=== PATIENT | male | born 1975 | race Caucasian/White ===

== ENCOUNTER 2023-09-24 08:25 | Inpatient (IN) | payer BC, SELFPAY ==
[2023-09-16 13:53] VITALS: BMI 25.7
[2023-09-16 14:52] LABS: INR 0.98; PT 13.2 Sec (11.4-14.6)
[2023-09-16 14:53] LABS: APTT 25.1 Sec (23.4-35.0)
[2023-09-16 15:03] LABS: Hematocrit 44.5 % (39.0-52.0); Hemoglobin 16.1 g/dL (13.0-18.0); Mean Corp Hgb Conc. 36.2 g/dL (33.0-37.0); Mean Corpuscular Hgb 32.5 pg (27.0-31.0); Mean Corpuscular Volume 89.9 fL (80.0-94.0); Mean Platelet Volume 11.4 fL (7.4-10.4); Platelet Count 235 10^3/uL (130-400); Red Blood Cell Count 4.95 10^6/uL (4.70-6.10); Red Cell Dist. Width 11.9 % (11.5-14.5); White Blood Cell Count 6.9 10^3/uL (4.8-10.8)
[2023-09-23] VITALS (11 sets, daily range): BP systolic 72–146; BP diastolic 76–99; BMI 24.3
--- NOTE | 2023-09-23 12:27 | SUR.PHASEI ---
1222. Ask to place NRB mask on patient per Dr Velazquez. IR will call for Ct insertion. 02 sats good 100%, no chest pain or SOb. Brittney Finnegan RN BSN.
--- NOTE | 2023-09-23 12:46 | SUR.PHASEI ---
To IR on [id number]. Brittney banuelos RN BSN.
--- NOTE | 2023-09-23 12:53 | W.PN.UPDATE ---
Update Note
Progress Note Update
Event Note:
Patient here today for robotic ION bronchoscopy for RML spiculated nodule. Procedure went well and at end of case peak pressure were stable and <30 and plateau pressures were 18-20. There were no large swings in peak or plateu pressures during the
entire case. Post-procedure the pt went to PACU. Post-op CXR shows large R-sided PTX. I immediately went to see the patient. He was stable on nasal cannula but still lethargic from awakening from anesthesia. Decision made to place on NRB 100%,
and I contacted IR for emergent chest tube. Pt to be admitted to hospitalist service, Dr. Almaguer. I will follow along as a pulmonary qa consultant.
Impression:
#Right sided acute secondary pneumthorax due to RML biopsy in setting of emphysema
#Former tobacco use disorder
#RML nodule - prelim pathology shows atypical/malignant cells on the brushing, TBNA and TBBx
Plan:
- Place onto 100% FiO2 to help resorb PTX --> keep on 100% FiO2 for today
- stat IR chest tube
- Keep on negative suction -[id number]
- Monitor for air leak
- No incentive spirometer as this can worsen his PTX
- I will follow as a pulmonary qa consultant
- Await final path from biopsies today
- full consult note to follow
I updated the in the same-day surgery waiting room. She is concerned but understandable. All questions were answered.
--- NOTE | 2023-09-23 13:07 | HPS.HSE ---
Addendum entered and electronically signed by Fermín Almaguer MD 09/23/23 13:33:
As per Dr. Velazquez of pulmonary:
- Place onto 100% FiO2 to help resorb PTX --> keep on 100% FiO2 for today (maintain on 100% nonrebreather mask for today unless patient is eating then patient can do 6 L/min nasal cannula)
- Keep on negative suction -[id number]
- Monitor for air leak
- No incentive spirometer as this can worsen his pneumothorax
Original Note:
Family Physician
-
Family Physician: Arlet Wheatley MD
Chief Complaint
-
Pneumothorax post-procedure
History of Present Illness
48 y/o male with past medical history of emphysema, former tobacco smoker, spiculated right middle lobe nodule, Lyme Disease, chicken pox, and hyperlipidemia presented after right-sided chest tightness after pulmonary procedures - robotic
bronchoscopy and endobronchial ultrasound - with chest x-ray showed large right-sided pneumothorax. Patient was seen in the Interventional Radiology department, he was there to get chest tube placed. Patient denied any significant shortness of
breath or actual chest pain, but a vague feeling of chest tightness on his right side. He denied fever, nausea, vomiting or any other complaints.
Medical History
Past Medical History
Past Medical History: Reports Other (As per HPI above)
Past Surgical History: Reports Other (Hernia Repair and Dental Surgery)
Social History
Tobacco: Former Smoker
Alcohol: None
Drug: None
Family History
Family History: Cancer and Hypertension
Allergies / Home Medications
Allergies reflects when Allergies were last updated in [facility].
Home Medications with original date entered in [facility]
Allergy/Medication List:
Allergies
Allergy/AdvReac Type Severity Reaction Status Date / Time
No Known Allergies Allergy Verified 09/23/23 08:51
Home Medications
diphenhydramine HCl 25 mg capsule (ZzzQuil) 25 mg PO HS PRN insomnia 09/20/23
melatonin 10 mg tablet 10 mg PO HS PRN insomnia 09/20/23
pqzehgtx-expkahwc-oznib acid 400 mcg-vit K 20 mcg-lycop 300 mcg tablet 1 tab PO DAILY 09/20/23
red yeast rice 600 mg tablet 1,200 mg PO DAILY 09/20/23
trazodone 100 mg tablet 100 mg PO PRN PRN pain 09/20/23
Review of Systems
-
A 12 point ROS was completed and negative except as noted: Yes
Physical Exam
Vital Signs
Vital Signs
Temp Pulse Resp BP Pulse Ox
98 F 72 18 139/88 100
09/23/23 12:51 09/23/23 12:51 09/23/23 12:51 09/23/23 12:51 09/23/23 12:51
Physical Exam
General: No Apparent Distress, Comfortable and Conversant
HEENT: NormoCephalic and Moist mucous membranes
Respiratory: Decreased Breath Sounds (on the right side)
Cardiac: S1/S2 and Regular Rhythm
GI: Soft, Non Tender and Normal Bowel Sounds
Musculoskeletal: No Cyanosis and No Edema
Skin: Warm and Dry
Neuro: Awake, Alert and AO x 3
Psych: Calm and Intact Judgment/Insight
Laboratory Results
-
09/16/23 13:46
Laboratory Results
PT 13.2 Sec (11.4-14.6) 09/16/23 13:46
INR 0.98 09/16/23 13:46
APTT 25.1 Sec (23.4-35.0) 09/16/23 13:46
Impression/Plan
-
Assessment/Plan
Large right pneumothorax following Robotic Bronchoscopy ad Endobronchial Ultrasound
Spiculated right middle lobe nodule
-Chest tube to be placed by IR shortly
-Pulmonary consulted, recommendations appreciated
-Maintain on 100% nonrebreather mask for today unless patient is eating then patient can do 6 L/min nasal cannula
Emphysema
Former tobacco smoker
History of Lyme Disease
History of Chicken Pox
Hyperlipidemia
DVT PPx: Heparin
Diet: Regular
Code Status: Full Code
[2023-09-23] MEDS: TORADOL 15 MG IV ×2 (16:41→23:02)
[2023-09-23] MEDS: FLUSH (NSS) 1 FLUSH IV (16:42)
--- NOTE | 2023-09-23 16:52 | CON.PUL ---
Consultation
Consultation Request
Date/Time Consultation Requested: 09/23/2023 - 1224
Date/Time Consultation Performed: 09/23/2023 - 1224
Requesting Provider: Dr. Velazquez
Performing Provider: Dr. Velazquez
Reason for Consultation: PTX
Medical History
-
Chief Complaint: Postoperative pneumothorax
History of Present Illness:
48-year-old male former tobacco smoker with PMhx of emphysema, insomnia and lyme disease who presents today for robotic bronchoscopy to workup high risk spiculated right middle lobe nodule measuring 11.7 mm. RML nodule originally seen on coronary
CT from September 05, 2023. The patient then saw me in the office on September 11, 2023 and consented for robotic bronchoscopy which he came in for today. Of note, PET/CT performed on 09/12/2023 showed that the RML 12 mm nodule was FDG avid, with
mildly FDG avid precarinal and right hilar lymph nodes. There was no additional area of FDG avid activity to suggest metastatic disease. Dedicated CT chest on 09/17/2023 showed a spiculated noncalcified pulmonary nodule in the RML measuring 12 x 13
x 9 mm, relatively unchanged compared to the coronary CT from 09/05/2023. Patient underwent robotic bronchoscopy with pulmonary pathology showing evidence of malignancy. Patient also underwent EBUS bronchoscopy of 4R, station 7 and 11 R. There was
stable peak and plateau pressures during the procedure with no increased oxygen requirements. Also no pneumothorax seen on fluoroscopy during the case. Postprocedure the patient was extubated and transferred to PACU where postoperative CXR showed
evidence of a large right-sided pneumothorax. I immediately saw the patient, he was in no acute distress. NRB 100% was placed onto the patient and IR was contacted who then placed a chest tube into the right hemithorax. There was a occasional
level 1 airleak seen after chest tube insertion. Post-chest tube insertion CXR showed resolution of right-sided pneumothorax. Patient now being admitted to hospitalist service and pulmonary will follow as a consult.
PMHx: History of Lyme disease, abnormal fasting glucose, hyperlipidemia, former tobacco use disorder
PSHx: Hernia repair, dental surgery
Past Medical History
Past Medical History: Other (above as per HPI)
Past Surgical History: Other (above as per HPI)
Social History
Tobacco: Former Smoker (3/4 PPD x 25-30 years - quit April 2022)
Alcohol: None
Drug: None
Personal:
Living: With Family
Family History
Family History: CAD (father), Cancer (Maternal grandfather) and Hypertension (mother)
Allergies / Home Medications
Allergies
Allergy/AdvReac Type Severity Reaction Status Date / Time
No Known Allergies Allergy Verified 09/23/23 08:51
Home Medications
Medication Instructions Recorded Confirmed Last Taken Type
diphenhydramine HCl 25 mg capsule 25 mg PO HS PRN insomnia 09/20/23 09/23/23 09/22/23 22:00 History
(ZzzQuil)
melatonin 10 mg tablet 10 mg PO HS PRN insomnia 09/20/23 09/23/23 09/22/23 22:00 History
ppwpuqat-jsahqtqz-xtuvu acid 400 1 tab PO DAILY 09/20/23 09/23/23 09/22/23 08:00 History
mcg-vit K 20 mcg-lycop 300 mcg
tablet
red yeast rice 600 mg tablet 1,200 mg PO DAILY 09/20/23 09/23/23 09/22/23 08:00 History
trazodone 100 mg tablet 100 mg PO PRN PRN pain 09/20/23 09/23/23 Unknown History
Review of Systems
-
History Source: Patient
All other systems: Negative unless noted (12 point ROS performed and is negative unless mentioned above.)
Vitals / Labs / Diagnostic Testing
Vital Signs
Temp Pulse Resp BP Pulse Ox
97.9 F 102 20 146/99 98
09/23/23 16:34 09/23/23 16:31 09/23/23 16:34 09/23/23 16:31 09/23/23 16:34
Diagnostic Testing:
Physical Exam
-
HEENT: Normocephalic and Anicteric
Cardiovascular: S1/S2 and Peripheral Edema (neg)
Respiratory: Clear, Wheeze (neg), Rales (neg), Rhonchi (neg), Non-Labored Respirations and Other (right sided chest tube attached to pleuro-vac with occasional level 1 air leak)
GI: Soft, Non Distended, Non Tender and Normal Bowel Sounds
Neurology: Awake, Alert and Tremors (neg)
Skin: Warm and Dry
General: Comfortable
Assessment
-
Assessment: 48-year-old male former tobacco smoker who presents today for robotic bronchoscopy to workup high risk spiculated right middle lobe nodule measuring 11.7 mm. RML and nodule is PET avid and he also has mildly FDG avid precarinal and
right hilar lymph nodes. Robotic bronchoscopy and EBUS bronchoscopy with biopsies performed with no immediate complications. Postprocedure CXR in PACU showed evidence of a large right-sided pneumothorax. Chest tube placed by IR and he is now
being admitted to hospitalist service with pulmonary service following as a sql consultant.
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
Impression:
#Right sided acute secondary pneumothorax s/p RML robotic-assisted biopsy of 12mm spiculated RML nodule n setting of emphysema
#Former tobacco use disorder - smoked 3/4PPD x 25-30 years - quit April 2022
#RML nodule - prelim pathology shows atypical/malignant cells on the brushing, TBNA and TBBx
#Insomnia
#Paraseptal emphysema without COPD
Plan:
- continue high FiO2 oxygen via NRB overnight
- Repeat CXR in AM
- Keep chest tube to negative suction at -[id number]
- If AM CXR shows resolved PTX and there is no air leak, then I will clamp the chest tube; IR also managing chest tube
- Pain control
- Maintain MAP>65
- Follow up official pathology from today's robotic bronchoscopy + EBUS bronchoscopy
- Replete K>3.5, Mg>1.8, PO4>3
- Hold off on incentive spirometer as this can exacerbate his PTX
- continue trazodone +/- melatonin
- DVT ppx: Ok for chemical ppx + SCDs
Pulmonary service will continue to follow along
Data:
CXR 09-23-2023: Resolution right pneumothorax following chest tube placement.
CXR 09-23-2023: Large right pneumothorax.
Outpatient [facility] Data:
PFT - 09/16/2023:
��������FEV1/FVC: 76 (97% predicted)
��������FEV1: 4.08L (103%)
��������FVC: 5.35L (105%)
��������FEB77-89%: 106%
��������
��������T% (7.11L)
��������VC: 105%
��������RV: 80%
��������
��������DLco: 86%
��������VA: 102% (7.28L)
��������DLco/VA: 90%
Impression:� Normal study
--- NOTE | 2023-09-23 18:20 | PTCARENOTE ---
Received patient at 1620 to IVU. Oriented to room and call hernandez. Right sided CT to -20cm suction. Medicated for pain with IV Toradol as ordered. Pain at CT site and right upper back into clavicle much improved. Currently eating dinner sitting up in
bed. at bedside.
--- NOTE | 2023-09-23 18:36 | PTCARENOTE ---
Addendum entered by Ella Burks 09/23/23 19:11:
Correction: Chest tube to suction -20cm.
Original Note:
Received to IVU at 1620, oriented to room and call hernandez. CT to -20cm water seal. Medicated for pain with IV Toradol as ordered. Pain at CT site and right upper back into clavicle much improved. Currently eating dinner sitting up in bed. at
bedside.
[2023-09-23] MEDS: ULTRAM 25 MG PO (20:25)
[2023-09-23] MEDS: HEPARIN 5000 UNITS SC (20:25)
[2023-09-23 21:40] LABS: Hematocrit 42.2 % (39.0-52.0); Hemoglobin 15.2 g/dL (13.0-18.0); Mean Corpuscular Hgb 31.6 pg (27.0-31.0); Mean Corpuscular Volume 87.7 fL (80.0-94.0); Mean Platelet Volume 10.5 fL (7.4-10.4); Platelet Count 241 10^3/uL (130-400); Red Blood Cell Count 4.81 10^6/uL (4.70-6.10); Red Cell Dist. Width 11.9 % (11.5-14.5); White Blood Cell Count 11.2 10^3/uL (4.8-10.8)
[2023-09-23 21:58] LABS: ALT (SGPT) 34 U/L (0-50); AST (SGOT) 27 U/L (17-59); Alkaline Phosphatase 61 U/L (38-126); Blood Urea Nitrogen 17 mg/dl (9-20); Calcium 8.9 mg/dl (8.4-10.2); Carbon Dioxide 26 mmol/L (22-30); Chloride 100 mmol/L (98-107); Estimated Creatinine Clearance 125 ml/min; Glucose 117 mg/dl (70-99); Magnesium 2.1 mg/dl (1.6-2.3); Potassium 4.6 mmol/L (3.5-5.1); Sodium 135 mmol/L (135-145); Total Bilirubin 0.7 mg/dl (0.2-1.3); Total Protein 6.5 g/dl (6.3-8.2); eGFR > 60.00
[2023-09-23] MEDS: MELATONIN 10 MG PO (22:48)
--- NOTE | 2023-09-23 23:20 | PTCARENOTE ---
Pt continues to have some discomfort from CT site with deep inspiration, Toradol given. Spouse staying with pt overnight. call hernandez within reach. Pt currently on venti mask at 50%, Ct hooked to suction -20, scant bloody output noted in container
[2023-09-24 04:59] VITALS: BP 134/98
[2023-09-24] MEDS: TORADOL 15 MG IV ×3 (05:13→21:56)
--- NOTE | 2023-09-24 05:32 | PTCARENOTE ---
Pt reports sleeping fair. awoken at 0500 for VS. Sinus on telemetry. medicated with Toradol for CT site pain. Drsg to chest tube site dry an intact
Rsp even and unlabored. decreased on right. sat 's all night 98-99% on venti mask at 50%-6 lit.
[2023-09-24 06:18] LABS: Hematocrit 41.5 % (39.0-52.0); Hemoglobin 14.7 g/dL (13.0-18.0); Mean Corp Hgb Conc. 35.4 g/dL (33.0-37.0); Mean Corpuscular Hgb 31.7 pg (27.0-31.0); Mean Corpuscular Volume 89.6 fL (80.0-94.0); Mean Platelet Volume 11.4 fL (7.4-10.4); Platelet Count 223 10^3/uL (130-400); Red Blood Cell Count 4.63 10^6/uL (4.70-6.10); Red Cell Dist. Width 11.9 % (11.5-14.5); White Blood Cell Count 10.4 10^3/uL (4.8-10.8)
[2023-09-24 06:31] VITALS: BP 130/81
[2023-09-24 06:48] LABS: Blood Urea Nitrogen 19 mg/dl (9-20); Calcium 8.9 mg/dl (8.4-10.2); Carbon Dioxide 24 mmol/L (22-30); Chloride 102 mmol/L (98-107); Estimated Creatinine Clearance > 125 ml/min; Glucose 104 mg/dl (70-99); Magnesium 2.4 mg/dl (1.6-2.3); Potassium 4.3 mmol/L (3.5-5.1); Sodium 135 mmol/L (135-145); eGFR > 60.00
--- NOTE | 2023-09-24 09:21 | CM ---
Reviewed chart. Met with and Mrs Hendrix to review discharge plans. He states prior to admission he resides with his spouse in a two story home without any steps to enter. He states he has a full flight of steps to get to bedroom/full bathroom. He
states he has a powder room on the first floor. He states prior to admission he was independent with ambulation and and adls. He states he does not have any DME in the home. He states he has a prescription plan and uses [facility]. Will need to
see his current functional level to see if he will have any skilled care needs. Medical work-up in progress. The discharge plan is to return home with his spouse when medically stable.
[2023-09-24] MEDS: ULTRAM 25 MG PO ×2 (09:24→18:32)
[2023-09-24] MEDS: HEPARIN 5000 UNITS SC ×2 (09:24→19:55)
[2023-09-24] MEDS: THERAGRAN 1 TABLET PO (09:25)
--- NOTE | 2023-09-24 10:36 | W.PN.PUL3 ---
Today's Communication / Plan
-
Keep chest tube on low wall suction given continued air leak during forced expiration
If air leak resolved by this evening then I will put chets tube to water seal overnight, and clamp in AM
Pain control
Avoid IS for now given PTX and air leak
Assessment
-
Assessment: 48-year-old male former tobacco smoker who presents today for robotic bronchoscopy to workup high risk spiculated right middle lobe nodule measuring 11.7 mm. RML and nodule is PET avid and he also has mildly FDG avid precarinal and
right hilar lymph nodes. Robotic bronchoscopy and EBUS bronchoscopy with biopsies performed with no immediate complications. Postprocedure CXR in PACU showed evidence of a large right-sided pneumothorax. Chest tube placed by IR and he is now
being admitted to hospitalist service with pulmonary service following as a vocational rehabilitation consultant.
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
Impression:
#Right sided acute secondary pneumothorax s/p RML robotic-assisted biopsy of 12mm spiculated RML nodule n setting of emphysema
#Grade 1 air leak (during forced expiration only)
#Former tobacco use disorder - smoked 3/4PPD x 25-30 years - quit April 2022
#RML nodule - prelim pathology shows atypical/malignant cells on the brushing, TBNA and TBBx - suspected to be adenocarcinoma
#Insomnia
#Paraseptal emphysema without COPD
Plan:
- continue high FiO2 oxygen via NRB overnight
- Keep chets tube on low suction
- I will re-evaluate the chest tube later and if air leak resolved then I will place onto water seal overnight, and clamp in AM
- Serial CXR (next in AM)
- Keep chest tube to negative suction at -10 to -[id number]
- Pain control
- Maintain MAP>65
- Follow up official pathology from yesterday's robotic bronchoscopy + EBUS bronchoscopy
- Replete K>3.5, Mg>1.8, PO4>3
- Hold off on incentive spirometer as this can exacerbate his PTX
- continue trazodone +/- melatonin
- DVT ppx: Ok for chemical ppx + SCDs
Pulmonary service will continue to follow along
Data:
CXR 09-24-2023:
1. No pneumothorax on the current study.
2. Bibasilar opacities, unchanged compared to prior study, which may represent subsegmental atelectasis, pneumonia, and/or alveolar hemorrhage from biopsy.
CXR 09-23-2023: Resolution right pneumothorax following chest tube placement.
CXR 09-23-2023: Large right pneumothorax.
Outpatient [facility] Data:
PFT - 09/16/2023:
��������FEV1/FVC: 76 (97% predicted)
��������FEV1: 4.08L (103%)
��������FVC: 5.35L (105%)
��������WVV16-68%: 106%
��������
��������T% (7.11L)
��������VC: 105%
��������RV: 80%
��������
��������DLco: 86%
��������VA: 102% (7.28L)
��������DLco/VA: 90%
Impression:� Normal study
Subjective Data
-
Date of Service:
Date of Service: September 24, 2023
Chief Complaint: Pulmonary Follow Up
Subjective:
Seen this AM. Doing well. has pain in his right side of back. Has air leak upon forced expiration after I unclamped the chest tube on water seal. He denies SOB. at bedside. All questions were answered.
Review of Systems
General: Other (neg unless mentioned above)
Objective Data
Data Reviewed
Vital Signs / I&O / Oxygen:
Vital Signs
Temp Pulse Resp BP Pulse Ox
97.8 F 77 20 130/81 99
09/24/23 04:59 09/24/23 06:31 09/24/23 04:59 09/24/23 06:31 09/24/23 06:33
Intake and Output
09/23/23 09/24/23 09/25/23
06:59 06:59 06:59
Intake Total 315 / 315
Balance 315 / 315
SaO2 99
Nasal Cannula flow liters per 6
minute
Physical Exam
General: Comfortable
HEENT: Normocephalic and Anicteric
Cardiovascular: S1-S2 and Peripheral Edema (n)
Respiratory: Clear, Wheeze (n), Crackles (n) and Chest Tube (right hemithorax)
GI: Soft, Non Distended and Non Tender
Neurology: AO x 3 and Tremors (n)
Skin: Warm and Dry
Labs/Micro/Reports
Lab Data
09/24/23 05:06
09/24/23 05:06
[2023-09-24 11:23] VITALS: BP 140/89
[2023-09-24] MEDS: FLUSH (NSS) 1 FLUSH IV (13:02)
[2023-09-24 16:08] VITALS: BP 129/85
[2023-09-24 18:36] VITALS: BP 132/77
--- NOTE | 2023-09-24 18:43 | W.PN.HOSP.TC ---
Today's Communication/Plan
-
Please see below
Assessment / Plan
Assessment / Plan
Physical Exam
General: No Apparent Distress, Comfortable and Conversant
HEENT: Normocephalic and Moist mucous membranes
Respiratory: Decreased Breath Sounds (on the right side)
Cardiac: S1/S2 and Regular Rhythm
GI: Soft, Non Tender and Normal Bowel Sounds
Musculoskeletal: No Cyanosis and No Edema
Skin: Warm and Dry
Neuro: Awake, Alert and AO x 3
Psych: Calm and Intact Judgment/Insight
Assessment/Plan
Large right pneumothorax following Robotic Bronchoscopy ad Endobronchial Ultrasound
Spiculated right middle lobe nodule
-Chest tube was placed -- given persistent leak, continue chest tube on water seal tonight
-Pulmonary consulted, recommendations appreciated
-Maintain on 100% nonrebreather mask for tonight unless patient is eating then patient can do 6 L/min nasal cannula
-CXR in the morning
-Avoid incentive spirometer
Emphysema
Former tobacco smoker
History of Lyme Disease
History of Chicken Pox
Hyperlipidemia
DVT PPx: Heparin
Diet: Regular
Code Status: Full Code
Anticipated Discharge: Within 24 hours
Subjective/Interval History
-
Date of Service: September 24, 2023
Patient was seen and examined. He reported he felt a sharp tight feeling on the right side of his chest, denied any other new significant complaints.
Objective Data
-
Labs:
Laboratory Results
09/24/23
05:06
Sodium 135
Potassium 4.3
Chloride 102
Carbon Dioxide 24
BUN 19
Creatinine 0.7
Glucose 104 H
Calcium 8.9
Vital Signs:
Vital Signs
Temp Pulse Resp BP Pulse Ox
97.6 F 55 18 129/85 100
09/24/23 16:08 09/24/23 16:08 09/24/23 16:08 09/24/23 16:08 09/24/23 16:08
I&O
09/23/23 09/24/23 09/25/23
06:59 06:59 06:59
Intake Total 315 / 315 480 / 480
Output Total 350 / 350
Balance 315 / 315 130 / 130
[2023-09-24] MEDS: FLUSH (NSS) 2 FLUSH IV (21:57)
[2023-09-24] MEDS: MELATONIN 10 MG PO (22:02)
[2023-09-24 23:14] VITALS: BP 124/78
--- NOTE | 2023-09-24 23:41 | PTCARENOTE ---
Resting in bed with at his bedside. Took Toradol IV at 2155 for pain in his chest tube insertion site with relief. On 100 % NR mask. CT dressing remains dry and intact with CT to water seal. Sleeping at present.
[2023-09-25 04:29] VITALS: BP 124/87
[2023-09-25 05:02] LABS: Hematocrit 39.8 % (39.0-52.0); Hemoglobin 14.1 g/dL (13.0-18.0); Mean Corp Hgb Conc. 35.4 g/dL (33.0-37.0); Mean Corpuscular Hgb 32.2 pg (27.0-31.0); Mean Corpuscular Volume 90.9 fL (80.0-94.0); Mean Platelet Volume 11.4 fL (7.4-10.4); Platelet Count 171 10^3/uL (130-400); Red Blood Cell Count 4.38 10^6/uL (4.70-6.10); Red Cell Dist. Width 11.8 % (11.5-14.5); White Blood Cell Count 7.4 10^3/uL (4.8-10.8)
[2023-09-25 05:32] LABS: Blood Urea Nitrogen 21 mg/dl (9-20); Carbon Dioxide 25 mmol/L (22-30); Chloride 102 mmol/L (98-107); Estimated Creatinine Clearance > 125 ml/min; Glucose 100 mg/dl (70-99); Magnesium 2.1 mg/dl (1.6-2.3); Potassium 4.1 mmol/L (3.5-5.1); Sodium 137 mmol/L (135-145); eGFR > 60.00
[2023-09-25 07:22] VITALS: BP 118/76
[2023-09-25] MEDS: ULTRAM 25 MG PO ×2 (07:26→16:06)
[2023-09-25] MEDS: TORADOL 15 MG IV ×2 (07:26→16:06)
[2023-09-25] MEDS: THERAGRAN 1 TABLET PO (07:26)
[2023-09-25] MEDS: HEPARIN 5000 UNITS SC ×2 (07:27→21:52)
--- NOTE | 2023-09-25 09:40 | W.PN.PUL3 ---
Today's Communication / Plan
-
Chest tube clamped --> repeat CXR in 4-6 hours
If no recurrence of PTX then will remove chest tube
May be prudent to keep again overnight for observation with repeat CXR in AM considering he still has occasional air leak during forced expiration --> will discuss next step after CXR this afternoon
Pain control
Avoid IS for now given PTX
Assessment
-
Assessment: 48-year-old male former tobacco smoker who presents today for robotic bronchoscopy to workup high risk spiculated right middle lobe nodule measuring 11.7 mm. RML and nodule is PET avid and he also has mildly FDG avid precarinal and
right hilar lymph nodes. Robotic bronchoscopy and EBUS bronchoscopy with biopsies performed with no immediate complications. Postprocedure CXR in PACU showed evidence of a large right-sided pneumothorax. Chest tube placed by IR and he is now
being admitted to hospitalist service with pulmonary service following as a instructional design consultant.
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
Impression:
#Right sided acute secondary pneumothorax s/p RML robotic-assisted biopsy of 12mm spiculated RML nodule n setting of emphysema
#Grade 1 air leak (during forced expiration only)
#Former tobacco use disorder - smoked 3/4PPD x 25-30 years - quit April 2022
#RML nodule - prelim pathology shows atypical/malignant cells on the brushing, TBNA and TBBx - suspected to be adenocarcinoma
#Insomnia
#Paraseptal emphysema without COPD
Plan:
- Clamp chest tube with repeat CXR in 4 hours. If no recurrent of PTX then will remove chest tube.
- Continue nasal cannula 6L/min today
- ok for patient to get up OOB
- Pain control
- Maintain MAP>65
- Follow up official pathology from robotic bronchoscopy + EBUS bronchoscopy performed on 09/23/2023
- Replete K>3.5, Mg>1.8, PO4>3
- Hold off on incentive spirometer as this can exacerbate his PTX
- continue trazodone +/- melatonin
- DVT ppx: Ok for chemical ppx + SCDs
Pulmonary service will continue to follow along.
Data:
CXR 09-25-2023:
Unchanged right chest tube. No pneumothorax. Decreased right basilar airspace opacity.
CXR 09-24-2023:
1. No pneumothorax on the current study.
2. Bibasilar opacities, unchanged compared to prior study, which may represent subsegmental atelectasis, pneumonia, and/or alveolar hemorrhage from biopsy.
CXR 09-23-2023: Resolution right pneumothorax following chest tube placement.
CXR 09-23-2023: Large right pneumothorax.
Outpatient [facility] Data:
PFT - 09/16/2023:
��������FEV1/FVC: 76 (97% predicted)
��������FEV1: 4.08L (103%)
��������FVC: 5.35L (105%)
��������WAF00-27%: 106%
��������
��������T% (7.11L)
��������VC: 105%
��������RV: 80%
��������
��������DLco: 86%
��������VA: 102% (7.28L)
��������DLco/VA: 90%
Impression:� Normal study
Subjective Data
-
Date of Service:
Date of Service: September 25, 2023
Chief Complaint: Pulmonary Follow Up
Subjective:
Seen this AM. Chest tube still with air leak upon forced expiration. Chest tube was placed to water seal last night and he wore 100% NRB overnight. He is in NAD. he was able to walk around the unit today and denies chest pain, SOB, abd pain, or
back pain.
Review of Systems
General: Other (neg unless mentioned above)
Objective Data
Data Reviewed
Vital Signs / I&O / Oxygen:
Vital Signs
Temp Pulse Resp BP Pulse Ox
98.1 F 65 18 124/87 98
09/25/23 07:57 09/25/23 07:25 09/25/23 07:25 09/25/23 04:29 09/25/23 10:19
Intake and Output
09/24/23 09/25/23 09/26/23
06:59 06:59 06:59
Intake Total 315 / 315 480 / 480 500 / 500
Output Total 350 / 350
Balance 315 / 315 130 / 130 500 / 500
SaO2 98
Nasal Cannula flow liters per 6
minute
Physical Exam
General: Comfortable
HEENT: Normocephalic and Anicteric
Cardiovascular: S1-S2 and Peripheral Edema (n)
Respiratory: Clear, Wheeze (n), Crackles (n) and Chest Tube (right hemithorax)
GI: Soft, Non Distended and Non Tender
Neurology: AO x 3 and Tremors (n)
Skin: Warm, Dry and Jaundice (neg)
Labs/Micro/Reports
Lab Data
09/25/23 04:27
09/25/23 04:27
--- NOTE | 2023-09-25 10:35 | PTCARENOTE ---
Rec'd pt this shift awake and alert sitting in chair. Pt NSR on monitor. 100% non-rebreather mask in place. As per Dr. Velazquez, can place pt on 6l n/c oxygen. Pulse ox 99%. Pt with Rt chest tube to water seal. Pt denies sob. Dr. Velazquez at bedside
at this time. Chest tube clamped. See worklist for VS/I and O and assessments.
[2023-09-25] MEDS: TYLENOL 500 MG PO (11:20)
--- NOTE | 2023-09-25 11:42 | W.PN.HOSP.TC ---
Today's Communication/Plan
-
Please see below
Anticipated discharge tomorrow
Assessment / Plan
Assessment / Plan
Physical Exam
General: No Apparent Distress, Comfortable and Conversant
HEENT: Normocephalic and Moist mucous membranes
Respiratory: Decreased Breath Sounds (on the right side)
Cardiac: S1/S2 and Regular Rhythm
GI: Soft, Non Tender and Normal Bowel Sounds
Musculoskeletal: No Cyanosis and No Edema
Skin: Warm and Dry
Neuro: Awake, Alert and AO x 3
Psych: Calm and Intact Judgment/Insight
Assessment/Plan
Large right pneumothorax following Robotic Bronchoscopy and Endobronchial Ultrasound
Spiculated right middle lobe nodule with preliminary pathology showing atypical/malignant cells
-Chest tube clamped by pulmonary this morning
-Repeat CXR in 4 hours: if no recurrent pneumothorax, then chest tube will be removed.
-Pulmonary consulted, recommendations appreciated
-Continue nasal cannula 6L/min today
-Avoid incentive spirometer
Emphysema
Former tobacco smoker
History of Lyme Disease
History of Chicken Pox
Hyperlipidemia
DVT PPx: Heparin
Diet: Regular
Code Status: Full Code
Anticipated Discharge: Within 24 hours
Subjective/Interval History
-
Date of Service: September 25, 2023
Patient was seen and examined. He still reports some uncomfortable feeling on the right side of his chest, but denied any new or worsening symptoms, he was able to walk around the hallways.
Objective Data
-
Labs:
Laboratory Results
09/25/23
04:27
WBC 7.4
Hgb 14.1
Hct 39.8
Plt Count 171 D
Sodium 137
Potassium 4.1
Chloride 102
Carbon Dioxide 25
BUN 21 H
Creatinine 0.7
Glucose 100 H
Calcium 9.0
Vital Signs:
Vital Signs
Temp Pulse Resp BP Pulse Ox
98.1 F 65 18 124/87 98
09/25/23 07:57 09/25/23 07:25 09/25/23 07:25 09/25/23 04:29 09/25/23 10:19
I&O
09/24/23 09/25/23 09/26/23
06:59 06:59 06:59
Intake Total 315 / 315 480 / 480 500 / 500
Output Total 350 / 350
Balance 315 / 315 130 / 130 500 / 500
[2023-09-25 11:54] VITALS: BP 108/75
--- NOTE | 2023-09-25 14:27 | PTCARENOTE ---
CXR done with chest tube clamped. Dr. Velazquez aware.
[2023-09-25 16:45] VITALS: BP 113/81
--- NOTE | 2023-09-25 17:26 | W.PN.UPDATE ---
Update Note
Progress Note Update
Afternoon CXR reviewed after chest tube was clamped for >4 hours. No PTX seen on CXR and pt has been walking around unit and did few coughs for me earlier in afternoon and he feels fine. No cp, sob or back pain. Chest tube removed with bedside RN
without complications. Pt told to hum during removal, which he did. Chest tube insertion site covered with petroleum gauze, 4x4 and covered with tape. Pt feels well post-chest tube removal. Nasal cannula removed. Repeat CXR in AM. Advised pt
to notify RN if any SOB, chest pain, back pain, lightheadedness, or shoulder pain. at bedside - all questions were answered.
[2023-09-25 19:40] VITALS: BP 118/69
[2023-09-25 21:56] VITALS: BP 120/69
[2023-09-26 05:32] VITALS: BP 117/81
[2023-09-26 06:02] LABS: Hematocrit 39.1 % (39.0-52.0); Hemoglobin 14.1 g/dL (13.0-18.0); Mean Corp Hgb Conc. 36.1 g/dL (33.0-37.0); Mean Corpuscular Hgb 31.6 pg (27.0-31.0); Mean Corpuscular Volume 87.7 fL (80.0-94.0); Platelet Count 186 10^3/uL (130-400); Red Blood Cell Count 4.46 10^6/uL (4.70-6.10); Red Cell Dist. Width 11.7 % (11.5-14.5); White Blood Cell Count 6.3 10^3/uL (4.8-10.8)
[2023-09-26 06:24] LABS: Blood Urea Nitrogen 22 mg/dl (9-20); Calcium 8.7 mg/dl (8.4-10.2); Carbon Dioxide 26 mmol/L (22-30); Chloride 107 mmol/L (98-107); Estimated Creatinine Clearance > 125 ml/min; Glucose 106 mg/dl (70-99); Sodium 135 mmol/L (135-145); eGFR > 60.00
[2023-09-26] MEDS: THERAGRAN 1 TABLET PO (08:28)
[2023-09-26] MEDS: HEPARIN 5000 UNITS SC (08:28)
[2023-09-26 08:30] VITALS: BP 122/77
--- NOTE | 2023-09-26 09:42 | W.PN.PUL3 ---
Today's Communication / Plan
-
Repeat chest x-ray at 1 PM
Pathology pending
Reviewed physical limitations
Follow closely
Assessment
-
Assessment: 48-year-old male former tobacco smoker who presents today for robotic bronchoscopy to workup high risk spiculated right middle lobe nodule measuring 11.7 mm. RML and nodule is PET avid and he also has mildly FDG avid precarinal and
right hilar lymph nodes. Robotic bronchoscopy and EBUS bronchoscopy with biopsies performed with no immediate complications. Postprocedure CXR in PACU showed evidence of a large right-sided pneumothorax. Chest tube placed by IR and he is now
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
Impression:
#Right sided acute secondary pneumothorax s/p RML robotic-assisted biopsy of 12mm spiculated RML nodule n setting of emphysema
Chest tube removed 09/24 1 PM
#Former tobacco use disorder - smoked 3/4PPD x 25-30 years - quit April 2022
#RML nodule - prelim pathology shows atypical/malignant cells on the brushing, TBNA and TBBx - suspected to be adenocarcinoma
#Insomnia
#Paraseptal emphysema without COPD
Plan:
Chest x-ray this morning with small right apical pneumo
Plan for repeat chest x-ray at 1 PM later today
Discussed importance of minimizing forceful breathing, coughing, bearing down
Reviewed limitations with regards to exercise, lifting
Hopefully can confirm stability/improvement later today
Reviewed with primary service, at bedside
All questions answered
Data:
CXR 09/26/2023: Chest tube removed, small right apical pneumothorax
CXR 09-25-2023:
Unchanged right chest tube. No pneumothorax. Decreased right basilar airspace opacity.
CXR 09-24-2023:
1. No pneumothorax on the current study.
2. Bibasilar opacities, unchanged compared to prior study, which may represent subsegmental atelectasis, pneumonia, and/or alveolar hemorrhage from biopsy.
CXR 09-23-2023: Resolution right pneumothorax following chest tube placement.
CXR 09-23-2023: Large right pneumothorax.
Outpatient [facility] Data:
PFT - 09/16/2023:
��������FEV1/FVC: 76 (97% predicted)
��������FEV1: 4.08L (103%)
��������FVC: 5.35L (105%)
��������NFK87-79%: 106%
��������
��������T% (7.11L)
��������VC: 105%
��������RV: 80%
��������
��������DLco: 86%
��������VA: 102% (7.28L)
��������DLco/VA: 90%
Impression:� Normal study
Subjective Data
-
Date of Service:
Date of Service: September 26, 2023
Chief Complaint: Pulmonary Follow Up
Subjective:
Patient is feeling well chest tube yesterday p.m. Denies lightheadedness, dizziness, palpitations, shortness of breath, chest pain or chest tightness. Sitting in chair, at bedside. Patient ambulating without difficulty.
Objective Data
Data Reviewed
Vital Signs / I&O / Oxygen:
Vital Signs
Temp Pulse Resp BP Pulse Ox
97.8 F 83 18 122/77 97
09/26/23 08:33 09/26/23 08:30 09/26/23 08:33 09/26/23 08:30 09/26/23 08:33
Intake and Output
09/25/23 09/26/23 09/27/23
06:59 06:59 06:59
Intake Total 480 / 480 500 / 500
Output Total 350 / 350
Balance 130 / 130 500 / 500
SaO2 97
Nasal Cannula flow liters per 6
minute
Physical Exam
General: Comfortable
HEENT: Normocephalic and Anicteric
Cardiovascular: S1-S2, Regular Rhythm, Murmur (n), Rub (n) and Peripheral Edema (n)
Respiratory: Clear, Wheeze (n), Crackles (n), Rhonchi (n) and Crepitus (n)
GI: Soft, Non Distended and Non Tender
Neurology: Awake, Alert and No Motor Deficits (Ambulating)
Skin: Warm, Dry and Jaundice (neg)
Labs/Micro/Reports
Lab Data
09/26/23 05:35
09/26/23 05:35
--- NOTE | 2023-09-26 10:47 | CM ---
Reviewed chart. Met with and Mrs. Hendrix to review discharge plans. He states he is feeling better. He is hoping he will be able to go home soon. Prior to admission he resides with his spouse in a two story home without any steps to enter. He
has a full flight of steps to get to bedroom/full bathroom. He has a powder room on the first floor. Prior to admission he was independent with ambulation and adls. He does not have any DME in the home. He has a prescription plan and uses [facility]. He has been ambulating in the hallways. Medical work-up in progress. The discharge plan is to return home with his spouse when medically stable.
[2023-09-26 12:32] VITALS: BP 135/86
--- NOTE | 2023-09-26 14:44 | W.PN.HOSP.TC ---
Today's Communication/Plan
-
Discharge today
Assessment / Plan
Assessment / Plan
Physical Exam
General: No Apparent Distress, Comfortable and Conversant
HEENT: Normocephalic and Moist mucous membranes
Respiratory: CTAB
Cardiac: S1/S2 and Regular Rhythm
GI: Soft, Non Tender and Normal Bowel Sounds
Musculoskeletal: No Cyanosis and No Edema
Skin: Warm and Dry
Neuro: Awake, Alert and AO x 3
Psych: Calm and Intact Judgment/Insight
Assessment/Plan
Large right-sided pneumothorax following Robotic Bronchoscopy Biopsy and Endobronchial Ultrasound
Spiculated right middle lobe nodule with preliminary pathology showing atypical/malignant cells
-Chest x-ray this AM with small pneumothoraxm, repeat chest x-ray later today with slight improvement
-Pulmonary consulted, recommendations appreciated
-Okay to discharge patient today as per pulmonary
-Chest X-ray tomorrow morning on outpatient basis
-Pulmonary discussed importance of minimizing forceful breathing, coughing, bearing down and reviewed limitations with regards to exercise, lifting
Insomnia
Paraseptal emphysema without Chronic Obstructive Pulmonary Disease
Former tobacco smoker
History of Lyme Disease
History of Chicken Pox
Hyperlipidemia
DVT PPx: Heparin
Diet: Regular
Code Status: Full Code
More than 30 minutes spent in discharge including
Final examination of the patient
Summarizing hospital stay
Instructions for continuing care to all relevant caregivers
Preparation of discharge records, prescriptions, and referral forms
Total time spent (in minutes): 43
Anticipated Discharge: Today
Subjective/Interval History
-
Date of Service: September 26, 2023
Patient was seen and examined. Patient denied any chest pain, dizziness, shortness of breath or dizziness.
Objective Data
-
Labs:
Laboratory Results
09/26/23
05:35
WBC 6.3
Hgb 14.1
Hct 39.1
Plt Count 186
Sodium 135
Potassium 4.0
Chloride 107
Carbon Dioxide 26
BUN 22 H
Creatinine 0.7
Glucose 106 H
Calcium 8.7
Vital Signs:
Vital Signs
Temp Pulse Resp BP Pulse Ox
98.0 F 76 18 135/86 98
09/26/23 12:35 09/26/23 12:32 09/26/23 12:35 09/26/23 12:32 09/26/23 12:35
I&O
09/25/23 09/26/23 09/27/23
06:59 06:59 06:59
Intake Total 480 / 480 500 / 500
Output Total 350 / 350
Balance 130 / 130 500 / 500
--- NOTE | 2023-09-26 15:11 | W.DS.TRANS ---
DC Summary - Alcohol Rubber
-
Discharge Instructions:
Sleep Apnea Risk Low
Discharge Diagnosis/Procedures Large right-sided pneumothorax following Robotic
Bronchoscopy Biopsy and Endobronchial
Ultrasound
Spiculated right middle lobe nodule with
preliminary pathology showing atypical/malignant
cells
Insomnia
Paraseptal emphysema without Chronic Obstructive
Pulmonary Disease
Former tobacco smoker
History of Lyme Disease
History of Chicken Pox
Hyperlipidemia
Diet As tolerated
Activity As tolerated
Instructions: Pneumothorax (collapsed lung)
Pneumothorax (Collapsed Lung) (DC)
Chest Tubes
Stand-Alone Forms:
Changes to Home Medications: Yes
Discharge Medications:
DC Medications w/original date entered in [facility]
diphenhydramine HCl 25 mg capsule (ZzzQuil) 25 mg PO HS PRN insomnia 09/20/23
melatonin 10 mg tablet 10 mg PO HS PRN insomnia 09/20/23
bdyvbfed-kxgmzfny-fijni acid 400 mcg-vit K 20 mcg-lycop 300 mcg tablet 1 tab PO DAILY Supplement 09/20/23
red yeast rice 600 mg tablet 1,200 mg PO DAILY Supplement 09/20/23
trazodone 100 mg tablet 100 mg PO PRN PRN pain 09/20/23
Home Medication Changes
Trazodone on hold until outpatient follow-up
Pending Results: Yes
Additional Pending Results:
Lung biopsy results
Total time spent discharging patient (in min): 43
[2023-09-26 15:23] VITALS: BP 123/76
--- NOTE | 2023-09-26 15:34 | W.PN.UPDATE ---
Update Note
Progress Note Update
Repeat chest x-ray in the p.m. with slight improvement in right apical pneumothorax
Patient without complaints, has been walking without difficulty
Denies lightheadedness, chest pain, cough, shortness of breath
Okay for discharge
Reviewed at length with patient and limitations.
Okay to take antitussive therapy to minimize cough
Limit activity, ambulation is good
Avoid lifting, frequent bending, bearing down
Patient denies constipation
Check chest x-ray 09/27
Check chest x-ray 10/02
Still awaiting pathology
Discussed potential surgical evaluation, oncology evaluation
Follow-up with Dr. Velazquez in next few weeks
All questions answered
Reviewed with primary service
--- NOTE | 2023-10-03 07:23 | W.DCSUMMARY ---
Discharge Summary
Discharge Data
Date of Admission: 09/23/23
Date of Discharge: 09/26/23
Total time spent discharging patient (in min): 43
-
Pending Results: Yes
Additional Pending Results:
Lung Biopsy Results
Hospital Course
48 y/o male with past medical history of emphysema, former tobacco smoker, spiculated right middle lobe nodule, Lyme Disease, chicken pox, and hyperlipidemia presented after right-sided chest tightness after pulmonary procedures - robotic
bronchoscopy and endobronchial ultrasound - with chest x-ray showing large right-sided pneumothorax. At the time of admission, patient was seen in the Interventional Radiology department, he was there to get chest tube placed. Patient denied any
significant shortness of breath or actual chest pain, but a vague feeling of chest tightness on his right side. He denied fever, nausea, vomiting or any other complaints.
Pulmonary was consulted. Patient was placed on 100% oxygen non-rebreather as well as chest tube with negative suction. Patient was found to have continued air leak during forced expiration. Patient's chest tube was clamped on 09/25/23, and repeat
CXR later in the day showed no pneumothorax. Chest x-ray on the day after showed small pneumothorax with slight improvement later in the day on a repeat chest x-ray, patient was okay for discharge as per pulmonary with a repeat chest x-ray to be
done the following morning, on an outpatient basis.
Discharge Plan
-
Patient Disposition: Home (Routine Discharge)
Discharge Diagnosis/Procedures: Large right-sided pneumothorax following Robotic Bronchoscopy Biopsy and Endobronchial Ultrasound
Spiculated right middle lobe nodule with preliminary pathology showing atypical/malignant cells
Insomnia
Paraseptal emphysema without Chronic Obstructive Pulmonary Disease
Former tobacco smoker
History of Lyme Disease
History of Chicken Pox
Hyperlipidemia
Condition: Fair
Diet: As tolerated
Activity: As tolerated
Activity Restrictions/Additional Instructions:
Please follow the instruction/advice as discussed with you by pulmonary, especially in regards to minimizing forceful breathing, coughing, bearing down and the limitations with regards to exercise, lifting.
Repeat Chest X-Ray as an outpatient on 09/27/23 morning - script will be given to you
Instructions: Pneumothorax (collapsed lung), Pneumothorax (Collapsed Lung) (DC), Chest Tubes
Referrals:
Arlet Wheatley MD [Family Provider] -
Reji Velazquez MD [Active] - in two to four weeks
(CXR on 09/27
CXR on 10/02
)
Prescriptions:
Continued
diphenhydramine HCl [ZzzQuil] 25 mg Capsule
25 mg PO HS PRN (Reason: insomnia)
red yeast rice 600 mg Tablet
1,200 mg PO DAILY
fdzyuipm-mpw-dfabc-vit K-lycop 400-20-300 mcg Tablet
1 tab PO DAILY
melatonin 10 mg Tablet
10 mg PO HS PRN (Reason: insomnia)
Held
trazodone 100 mg Tablet
100 mg PO PRN PRN (Reason: pain)
Hold Instructions: Resume on 10/30/23. Review with your primary care physician regarding if and when you should resume this medication.
Discharge Orders:
Discharge Patient (As Directed); Ordered 09/26/23
Ordered By: Fermín Almaguer
Care Plan Goals
Care Plan Goals:
Problem: Readiness for enhanced knowledge related to diagnosis and treatment plan
Goal: Understand your diagnosis and treatment plan needs, including medications if applicable.
Instructions: Know your diagnosis, underlying causes and treatment plan options, including medications if applicable. Consult with your health care team to learn about your diagnosis and treatment plan, including medications if applicable.
Discharge Date and Time
Discharge Date/Time: 09/26/23 16:36
== END 2023-09-26 16:36 | disposition home or self-care (01) | DRG 167 ==
LOC: IVU 08:25
PROVIDERS: Radiology Vascular & Interventional Radiology; ADMITTING PHYSICIAN Hospitalist; CONSULT PHYSICIAN Internal Medicine Critical Care Medicine; FAMILY PHYSICIAN Emergency Medicine
PROC: 8E0W8CZ Robotic Assisted Procedure of Trunk Region, Via Natural or Artificial Opening Endoscopic (ICD-10-PCS; 2023-09-23)
PROC: 0BDD8ZX Extraction of Right Middle Lung Lobe, Via Natural or Artificial Opening Endoscopic, Diagnostic (ICD-10-PCS; 2023-09-23)
PROC: 0BB58ZX Excision of Right Middle Lobe Bronchus, Via Natural or Artificial Opening Endoscopic, Diagnostic (ICD-10-PCS; 2023-09-23)
PROC: 0B9D8ZX Drainage of Right Middle Lung Lobe, Via Natural or Artificial Opening Endoscopic, Diagnostic (ICD-10-PCS; 2023-09-23)
PROC: 0W9930Z Drainage of Right Pleural Cavity with Drainage Device, Percutaneous Approach (ICD-10-PCS; 2023-09-23)
PROC: 07D78ZX Extraction of Thorax Lymphatic, Via Natural or Artificial Opening Endoscopic, Diagnostic (ICD-10-PCS; 2023-09-23)
PROC: 0BBD8ZX Excision of Right Middle Lung Lobe, Via Natural or Artificial Opening Endoscopic, Diagnostic (ICD-10-PCS; 2023-09-23)
DX: J95.811 Postprocedural pneumothorax (principal); C34.2 Malignant neoplasm of middle lobe, bronchus or lung; J43.8 Other emphysema; Z87.891 Personal history of nicotine dependence; E78.5 Hyperlipidemia, unspecified; Z86.19 Personal history of other infectious and parasitic diseases
CPT/HCPCS: 88172; 88173; 88305; 32557; 36415; 71045; 76000; 80048; 80053; 83735; 85027; 85610; 85730; 88112; 88333; 94640; 99152; C1729; C1769; C1887

== ENCOUNTER → 2023-09-27 12:51 | Outpatient (REF) | payer BC, SELFPAY ==
[2023-09-27 14:10] VITALS: BP 147/85; BP_SYST 72
[2023-09-27 16:26] VITALS: BP 120/98
== END ==
LOC: RADI 12:51
PROVIDERS: ATTENDING PHYSICIAN Hospitalist; FAMILY PHYSICIAN Emergency Medicine; REFERRING PHYSICIAN Internal Medicine Critical Care Medicine
DX: J93.9 Pneumothorax, unspecified (principal)
CPT/HCPCS: 32557; 71046; 99152; 99153; C1729; C1769

== ENCOUNTER → 2023-09-30 12:30 | Outpatient (REF) | payer BC, SELFPAY | LOC: RAD 12:30 | PROVIDERS: ATTENDING PHYSICIAN Internal Medicine Critical Care Medicine; FAMILY PHYSICIAN Emergency Medicine | DX: J93.9 Pneumothorax, unspecified (principal) | CPT/HCPCS: 71046 ==

== ENCOUNTER → 2023-10-03 10:07 | Outpatient (REF) | payer BC, SELFPAY ==
--- NOTE | 2023-10-03 11:17 | W.PN.UPDATE ---
Update Note
Progress Note Update
Initial CXR shows NO pneumothorax. Chest tube removed without difficulty and vaseline gauze and DSD applied. Post removal CXR shows no PTX. Pt advised to follow up with pulmonary
== END ==
LOC: RADI 10:07
PROVIDERS: ATTENDING PHYSICIAN Internal Medicine Critical Care Medicine; FAMILY PHYSICIAN Emergency Medicine
DX: Z46.82 Encounter for fitting and adjustment of non-vascular catheter (principal); J93.9 Pneumothorax, unspecified
CPT/HCPCS: 71045; 71046

== ENCOUNTER 2023-10-06 19:03 | Emergency (ER) | payer BC, SELFPAY ==
[2023-10-06 19:13] VITALS: BP 140/80
[2023-10-06 21:16] VITALS: BMI 25.5
[2023-10-06] MEDS: KEFLEX 500 MG PO (21:48)
[2023-10-06] MEDS: TYLENOL 650 MG PO (21:48)
--- NOTE | 2023-10-06 21:54 | ED.GENMED ---
History of Present Illness
General
Chief Complaint: Wound Check/Suture Removal
Source: patient, records and family
Exam Limitations: none
Time Seen by Provider: 10/06/23 20:52
Nursing documentation reviewed up to this point in time: agreed with
Travel History
Have you had any contact with someone who has COVID-19?: No
Do you have any symptoms of coronavirus? Fever > 100 degrees, chills, cough, shortness of breath, sore throat, loss of taste or smell, muscle aches, or headache?: No
History of Present Illness
History of Present Illness:
48-year-old male presents with some drainage from his right chest tube site taken out a few days ago underwent a lung biopsy for a nodule found on a calcium score chest CT apparently had some suspicious cells but negative lymph node, postoperatively
had a pneumothorax, treated with 2 chest tubes and Heimlich valve, scheduled see his PCP tomorrow CT surgery on Saturday said no fever no shortness of breath some mild bloody drainage from the wound chest tube site
Past History
Past History
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
ED Past Surgical History: Other (Chest tube)
Social History
Tobacco: Former smoker
Alcohol: None
Drug: None
Personal:
Living: with family
Employment: Employed
Review of Systems
Review of Systems
All Other Systems: Not applicable
Constitutional: Denies fever or fatigue
EENT: Reports no symptoms
Respiratory: Reports no symptoms
Cardiac: Reports no symptoms
ABD/GI: Reports no symptoms
: Reports no symptoms
Skin: Reports other (Mild drainage from chest tubes)
Neurological: Reports no symptoms
Phy Exam
Physical Exam
Physical Exam:
Physical Exam
General: no apparent distress, not acutely ill
Neck: No jaundice
Heart: Regular
Lungs: no acute respiratory distress. 0.5 cm area stabbing-like incision right mid thorax with minimal scant serosanguineous drainage minimal redness no fluctuance
Neuro: alert and oriented. no focal neurological deficits
Skin: no rash
Psychiatric: well kept. interactive and cooperative
Extremities: no edema.
Course
Orders/Labs/Results
Orders:
Orders
10/06/23 19:55
CR Chest - 2 Views Urgent
Comment:
Reason For Exam: post ct
10/06/23 21:41
Acetaminophen [Tylenol] 650 mg PO NOW STA
Cephalexin Monohydrate [Keflex] 500 mg PO NOW STA
Vital Signs
Initial and Last Documented VS:
Initial Vital Signs
Temp Pulse Resp BP Pulse Ox
98.3 F 84 18 140/80 98
10/06/23 19:13 10/06/23 19:13 10/06/23 19:13 10/06/23 19:13 10/06/23 19:13
Last Documented Vital Signs
Temp Pulse Resp BP Pulse Ox
98.3 F 84 18 140/80 98
10/06/23 19:13 10/06/23 19:13 10/06/23 19:13 10/06/23 19:13 10/06/23 19:13
MDM/Problems Addressed
Differential Diagnosis Includes:
Seroma hematoma cellulitis abscess
MDM/Problems Addressed:
Chest wall drain
Chronic conditions affecting care:
Possible lung tumor, pneumothorax
*Radiology
Radiology exam reviewed: radiology read reviewed
*Pulse Oximetry
Patient hypoxic: no
*Critical Care Note
Total Time (30-74mins, 75-104mins- exclusive of procedures): Not Applicable
Data Reviewed
Review of Other/Old Records Reveals: Radiology Studies, Progress Notes and Discharge Summary
Source: patient, records and family
Update Note
Update Note:
Minimal drainage will start on antibiotics empirically follow-up with PCP and cardiac surgery as scheduled
ED Attending Note
-
Portions of this chart may have been created with voice recognition software.� Occasional wrong word or��sound alike� substitutions may have occurred due to the inherent limitations of voice recognition software.
Discharge Plan
Departure
Patient Disposition: Home (Routine Discharge)
Date of Disposition: 10/06/23
Time of Disposition: 21:59
Patient with high blood pressure during this ER visit?: No
Discharge Problem:
Drainage from wound
Instructions: Cellulitis (Skin Infection), Adult (DC)
Prescriptions:
No Action
trazodone 100 mg Tablet
100 mg PO PRN PRN (Reason: pain)
Hold Instructions: Resume on 10/30/23. Review with your primary care physician regarding if and when you should resume this medication.
diphenhydramine HCl [ZzzQuil] 25 mg Capsule
25 mg PO HS PRN (Reason: insomnia)
red yeast rice 600 mg Tablet
1,200 mg PO DAILY
onaozjuk-ssy-ofkgy-vit K-lycop 400-20-300 mcg Tablet
1 tab PO DAILY
melatonin 10 mg Tablet
10 mg PO HS PRN (Reason: insomnia)
Referrals:
Arlet Wheatley MD [Family Provider] - Keep scheduled appt
Activity Restrictions/Additional Instructions:
Keflex 4 times a day, Tylenol or ibuprofen for pain or fever
Follow-up with your family doctor and cardiothoracic surgeon as scheduled
Interventions
Interventions:
*Risk Screen - Suicide Last Done: 10/06/23 19:13
*General Assessment Last Done: 10/06/23 21:16
*Neglect/Abuse Screening Last Done: 10/06/23 21:16
ED- Fall Risk Assessment Last Done: 10/06/23 21:16
*ED COVID-19 Vaccine History Last Done: 10/06/23 21:16
ED- Cardiac Assessment Last Done: 10/06/23 21:16
ED- Pulmonary Assessment Last Done: 10/06/23 21:16
ED-Skin Assessment Last Done: 10/06/23 21:16
--- NOTE | 2023-10-06 22:20 | EDRN ---
Re-dressed wound prior to patient leaving
== END 2023-10-06 22:22 | disposition home or self-care (01) ==
LOC: EMR 19:03
PROVIDERS: EMERGENCY PHYSICIAN Emergency Medicine; FAMILY PHYSICIAN Emergency Medicine
DX: Z46.89 Encounter for fitting and adjustment of other specified devices (principal); Z98.890 Other specified postprocedural states
CPT/HCPCS: 99283; 71046

== ENCOUNTER 2023-10-30 07:30 | Inpatient (IN) | payer BC, SELFPAY ==
[2023-10-18 13:18] VITALS: BMI 25.8
[2023-10-18 13:25] LABS: % Eosinophils 1.8 % (0-6); % Immature Granulocytes 0.3 % (0-0.5); % Lymphocytes 30.7 % (20.5-51.1); % Monocytes 8.3 % (1.7-9.3); % Neutrophils 57.9 % (42.2-75.2); Absolute Basophils 0.1 10^3/uL (0-0.2); Absolute Eosinophils 0.1 10^3/uL (0-0.7); Absolute Lymphocytes 2.1 10^3/uL (1.2-3.4); Absolute Monocytes 0.6 10^3/uL (0.1-0.6); Absolute Neutrophils 3.9 10^3/uL (1.4-6.5); Hematocrit 43.4 % (39.0-52.0); Hemoglobin 15.7 g/dL (13.0-18.0); Mean Corp Hgb Conc. 36.2 g/dL (33.0-37.0); Mean Corpuscular Hgb 32.3 pg (27.0-31.0); Mean Corpuscular Volume 89.3 fL (80.0-94.0); Mean Platelet Volume 10.9 fL (7.4-10.4); Nucleated Red Blood Cells % 0 % (-); Platelet Count 263 10^3/uL (130-400); Red Blood Cell Count 4.86 10^6/uL (4.70-6.10); Red Cell Dist. Width 11.7 % (11.5-14.5); White Blood Cell Count 6.7 10^3/uL (4.8-10.8)
[2023-10-18 13:28] LABS: Urine Albumin Negative (Neg - Trace); Urine Bilirubin Negative (Negative); Urine Character Clear (Clear); Urine Color Yellow; Urine Glucose Negative (Negative); Urine Ketone Negative (Negative); Urine Leukocyte Negative (Negative); Urine Nitrite Negative (Negative); Urine Occult Blood Negative (Negative); Urine Urobilinogen Negative (Neg - 1+)
--- NOTE | 2023-10-18 13:29 | CM ---
Chart reviewed. Met with the patient and his in PAT. Patient is independent of ADLS, lives with his in a 2 [address], 0 MICHELLE, 0 DME. Reviewed preoperative and postoperative instructions, along with showering guidelines. Gave patient 2 soaps.
Patient is agreeable to a home visit by CT Transitional Care RN. Plan is for the patient to return home with CT Transitional RN. CM to follow
[2023-10-18 13:43] LABS: APTT 25.2 Sec (23.4-35.0); INR 0.99; PT 12.8 Sec (11.4-14.6)
[2023-10-18 13:45] LABS: ALT (SGPT) 41 U/L (0-50); AST (SGOT) 27 U/L (17-59); Albumin 4.5 g/dl (3.5-5.0); Alkaline Phosphatase 75 U/L (38-126); Blood Urea Nitrogen 12 mg/dl (9-20); Calcium 9.7 mg/dl (8.4-10.2); Carbon Dioxide 27 mmol/L (22-30); Chloride 102 mmol/L (98-107); Direct Bilirubin 0.5 mg/dl (0.0-0.4); Estimated Creatinine Clearance > 125 ml/min; Glucose 95 mg/dl (70-99); Potassium 4.4 mmol/L (3.5-5.1); Sodium 136 mmol/L (135-145); Total Bilirubin 0.8 mg/dl (0.2-1.3); Total Protein 7.4 g/dl (6.3-8.2); eGFR > 60.00
[2023-10-18 14:19] LABS: Glycohemoglobin (HgbA1c) 5.4 % (4.0-5.6)
[2023-10-30] VITALS (16 sets, daily range): BP systolic 109–135; BP diastolic 61–94; BMI 24.8
--- NOTE | 2023-10-30 08:38 | PTCARENOTE ---
Patient received from [employer]. He changed into a gown and socks - took all articles of clothing off. Admission performed. Weight obtained via standing scale. Vital signs obtained. HR 70, BP 138/59, RA, Oxygen saturation 99%. Type and screen
obtained. PIV inserted, patient tolerated. Clipped and prepped. Patient went into BR and washed himself up with CHG wipes ( did his back). Abx dispensed from [email or web address]. Awaiting CVOR to call for him.
--- NOTE | 2023-10-30 10:58 | CM ---
Patient in OR today for planned procedure.
Reviewed initial assessment. Pt. resides w/ spouse in a private, multi level home. Patient is functionally indep. prior to admission w ADLs, mobility without the use of any assisted device.
Anticipate home w/ CT Transitional care RN.
CM to follow.
--- NOTE | 2023-10-30 12:40 | W.CVOR.SURPR ---
CVOR Surgeon Immed Pre Op
-
I have examined this patient prior to performance of the scheduled procedure.
The patient's condition is unchanged from the time of the dictated/written History and
Physical and the patient is able to undergo the scheduled procedure.
RA RML + LN
[2023-10-30 13:59] LABS: Urine Albumin Negative (Neg - Trace); Urine Bilirubin Negative (Negative); Urine Character Clear (Clear); Urine Color Yellow; Urine Glucose Negative (Negative); Urine Ketone Negative (Negative); Urine Leukocyte Negative (Negative); Urine Nitrite Negative (Negative); Urine Occult Blood Negative (Negative); Urine Specific Gravity 1.025 (<1.030); Urine Urobilinogen Negative (Neg - 1+)
[2023-10-30] MEDS: STERILE WATER FOR INJECTION 16 ML IV (14:00)
[2023-10-30] MEDS: ZINACEF 1500 MG IV (14:00)
--- NOTE | 2023-10-30 17:00 | W.PN.CT.SURG ---
Addendum entered and electronically signed by Paresh Logan MD 10/30/23 17:40:
CORRECTION:
When referring to the horizontal fissure, should be the oblique fissure, and vice versa.
Original Note:
CT Surgery Operative Note
-
THORACIC SURGERY OPERATIVE REPORT
Preoperative Diagnosis: Right middle lobe invasive adenocarcinoma
Postoperative Diagnosis: Same
Procedure(s) Performed:
1. Robotic assisted thoracic surgery (RATS) right middle lobectomy
2. Right upper lobe bleb resection
3. Radical lymphadenectomy
4. Intercostal nerve block spaces 4 through 8 with quarter percent bupivacaine mixture
5. Extensive adhesiolysis/pneumolysis
Date of Surgery: 10/30/2023
Comorbidities:
1. Malignant neoplasm of the right middle lobe
2. History of tobacco abuse, quit in 2021
3. Hyperlipidemia
4. Insomnia
5. Lyme disease
6. History of chest tubes x 2 secondary to iatrogenic pneumothorax following biopsy
Attending Surgeon: Paresh Logan MD, MS
Assistants: Mariaa Cason PA-C (present and necessary to front office medical assistant, exchanging robotic instruments, retraction, suction, exposure, suture management, and wound closure under my direction)
Anesthesiology: Reinaldo Rg MD and Sarahi Johnson CRNA
Scrub and Circulating RNs: Eva Webster RN, Lindsey Ojeda RN
Anesthesia: Dual Lumen GETA
EBL: 100 cc
Products: None
Indication(s) for Procedures: This is a 48-year-old male who was found to have a right middle lobe nodule who underwent a subsequent robotic endoluminal bronchoscopy which yielded invasive adenocarcinoma. Unfortunately he had a pneumothorax post
procedure and required 2 chest tube placements. He subsequently recovered. Given the size of his nodule and presumed negative hilar lymph nodes, he was referred for surgical resection.
Findings: There are no obvious intrathoracic lesions concerning for metastatic disease. He did have evidence of severe emphysema of his lung tissue with hyperlipidemia and scarring around the hilar vessels. There was 1 station 11 lymph node that
was very calcified with a necrotic center and densely adherent to the bronchus leading to the right middle lobe. This was taken and marked separately for pathology. The fissure between the right middle lobe and right lower lobe was well-developed.
The fissure between the right upper lobe and right middle lobe was poorly developed. There are adhesions from lung parenchyma to chest wall at the previous chest tube sites. Once the specimen was removed from the chest, it was palpated and
verified to have the nodule in place. There was minor nodules leading down the lymphatic chain towards the hilum. On Valsalva maneuver to fully inflate the lung there was evidence of bullous lung disease at the right upper lobe apex. A single
fire of a green load stapler was used to resect this and sent off for pathology. At the inclusion of the case there is no significant loss of tidal volumes. There is a minor intermittent air leak on positive pressure ventilation. There was minor
parenchymal air leak on water test which we reinforced with pro gel.
Specimen(s):
Station 9, x 2 nodes
Station 10, x 2 nodes
Station 11, x 3 nodes
Station 4, x 2 nodes
Station 7, x 3 nodes
Right middle lobe
Right upper lobe lobectomy
Description of Procedure: The patient was taken to the operating room. Induction via general anesthesia with endotracheal intubation was performed and peripheral venous access and arterial monitoring were inserted. Their identity and procedure to be
performed were verified and they were positioned with the right side up on the operating table. The patient was then prepped and draped in a sterile fashion. A preoperative time-out was performed with all members of the team present. A Veress
needle was used to insufflate the chest after isolating the lung. An 8 mm port was placed in the midaxillary line at approximately the eighth intercostal space and confirmed to be intrathoracic without significant pulmonary injury. The chest was
surveyed for any evidence of metastatic disease. Patient tolerate insufflation without complication. 2 additional 12 mm trocars were placed on either side under camera guidance and a third 8 mm trocar was placed along the back. A 12 mm program services assistant
port was placed in the 11th intercostal space above the insertion of the diaphragm. An intercostal nerve block was performed at intercostal spaces 4 through 8.
The thoracic cavity was inspected for evidence of metastatic disease. None was observed. There was adhesions from the right upper lobe and right lower lobe to the lateral chest wall. This was taken down with a combination of bipolar cautery and
blunt dissection. We started with mobilization of the inferior pulmonary ligament. We worked our way clockwise dissecting out the hilum and harvest any lymph nodes identified. The tissue planes were poort around the hilar vessels. I then
adhesions between the RML to the right upper and lower lobe using green load staple fires. I tend developed the horizontal fissure which was well developed. The oblique fissure was poorly developed. I developed some plane using bipolar cautery. The
RML vein was skeletonized and then divided first to allow better access to the hilum. The pulmonary arteries leading to the right middle lobe were identified and skeletonized. They were sequentially divided with a white load stapler. There was a
very abnormal lymph node at the bronchus leading to right middle lobe which dissected and sent separately. I then clamped the bronchus along with some lung parenchyma and the remaining pulmonary artery and performed a test inflation which
demonstrated unobstructed flow into the remaining lobes. The specimen was displaced toward the apex while a chest tube was inserted and placed laterally towards the apex. A bubble test was performed to identify any air leaks. Pro-gel was used to
reinforce the staple lines and hilum along the raw lung surface. The right middle lobe was then placed into a specimen bag and extracted from the chest cavity. After confirming hemostasis, the lung was fully inflated and all ports were removed.
Incisions were closed in 3 layers including the fascia, dermal, and epidermis. Additional local anesthesia was injected into all incision sites. The skin wound was cleansed and sealed with Dermabond glue.
All instrument, sponge, and needle counts were confirmed to be correct x 2 at the end of the operation. The patient was transferred to the cardiac intensive care unit extubated in critical but stable condition.
I, Dr. Paresh Logan, was present, scrubbed for, and performed all critical elements of this procedure.
Paresh Logan MD, MS
Cardiothoracic Surgeon
[facility]
This operative dictation was created using the [employer] dictation system. Please excuse any grammatical, typographical, or 'sound alike' errors
[2023-10-30] MEDS: DILAUDID 0.5 MG IV (17:24)
[2023-10-30] MEDS: DEMEROL 12.5 MG IV ×2 (17:24→17:45)
[2023-10-30] MEDS: LIDOCAINE 4% PATCH 1 PATCH TOPICAL (18:49)
[2023-10-30] MEDS: HEPARIN 5000 UNITS SC (18:49)
[2023-10-30] MEDS: PERCOCET 5/325 2 TABLET PO ×2 (18:50→22:56)
--- NOTE | 2023-10-30 18:57 | PTCARENOTE ---
Addendum entered by Nyla Warren RN 10/30/23 19:29:
No crepitus noted upon palpation.
Original Note:
Patient received from PACU. Received bedside report from 2 PACU RNs. Patient is alert and oriented x4, slightly out of it with the anesthesia. Patient c/o 8/10 R upper back and R shoulder blade pain, administered PRN Percocet as ordered. L radial
a-line maintained. Leveled/zeroed. PIV x2 maintained. 4L NC maintained. RP CT maintained to -20cm wall suction with an intermittent +1 air leak and occasional tidaling. RP CT has moderate red drainage, 110cc upon arrival. RN assessed the 4 little
incisions that are approximated with surgical adhesive and open to air. RP CT dressing clean, dry, intact. Assist x1 to turn/reposition.
--- NOTE | 2023-10-30 19:30 | PTCARENOTE ---
assumed care of patient @ 1900. received pt laying in bed, AOX3, slightly drowsy postop however responds to verbal commands, LUCAS. Pt given percocets right before change of shift, pain medication orders reviewed with patient, will plan on doing
toradol between percocet doses as needed. NSR on monitor, +PP - E. BP stable 110s-120s however does increase to 140s-150s when patient is talking. Lungs diminished at bases but clear, satting high 90s on 4L NC. R plr chest tube to wall suction with
a small +1 intermittent air leak and ocasional tidaling. no crepitus palpated. Belly hypoactive. DTV - urinal provided. Lap sites on R chest/flank all closed with glue CDI LIZBET. PIV R hand and L forearm patent, R radial a line zeroed and flushed. pt
resting comfortably with call hernandez within reach.
[2023-10-30] MEDS: SENOKOT-S 1 TABLET PO (21:26)
[2023-10-30] MEDS: TORADOL 15 MG IV (21:27)
[2023-10-30] MEDS: NEURONTIN 100 MG PO (21:27)
[2023-10-30] MEDS: ZINACEF 750 MG IV (21:27)
[2023-10-30] MEDS: STERILE WATER FOR INJECTION 8.30000000000000071 ML IV (21:27)
[2023-10-30] MEDS: FLEXERIL 10 MG PO (21:39)
[2023-10-31] VITALS (10 sets, daily range): BP systolic 104–130; BP diastolic 68–89; BMI 25.1
--- NOTE | 2023-10-31 01:02 | PTCARENOTE ---
no change in assessment, pt resting comfortably with call hernandez within reach
[2023-10-31] MEDS: HEPARIN 5000 UNITS SC ×4 (01:47→23:10)
[2023-10-31] MEDS: ROXICODONE 10 MG PO ×4 (03:17→19:59)
[2023-10-31 03:25] LABS: Hemoglobin 13.7 g/dL (13.0-18.0); Mean Corp Hgb Conc. 36.1 g/dL (33.0-37.0); Mean Corpuscular Hgb 31.8 pg (27.0-31.0); Mean Corpuscular Volume 88.2 fL (80.0-94.0); Mean Platelet Volume 10.7 fL (7.4-10.4); Platelet Count 174 10^3/uL (130-400); Red Blood Cell Count 4.31 10^6/uL (4.70-6.10); Red Cell Dist. Width 11.7 % (11.5-14.5); White Blood Cell Count 9.5 10^3/uL (4.8-10.8)
[2023-10-31 03:41] LABS: Blood Urea Nitrogen 12 mg/dl (9-20); Calcium 8.1 mg/dl (8.4-10.2); Carbon Dioxide 23 mmol/L (22-30); Chloride 106 mmol/L (98-107); Estimated Creatinine Clearance > 125 ml/min; Glucose 134 mg/dl (70-99); Potassium 4.3 mmol/L (3.5-5.1); Sodium 133 mmol/L (135-145); eGFR > 60.00
--- NOTE | 2023-10-31 04:32 | PTCARENOTE ---
lab work drawn and sent, a line removed per order, no other change in assessment
[2023-10-31] MEDS: TORADOL 15 MG IV ×3 (05:55→18:39)
[2023-10-31] MEDS: ZINACEF 750 MG IV ×2 (05:56→14:31)
[2023-10-31] MEDS: STERILE WATER FOR INJECTION 8.30000000000000071 ML IV ×2 (05:56→14:31)
--- NOTE | 2023-10-31 05:57 | W.PN.CT ---
Today's Communication / Plan
-
-pod #1
-no issues overnight
-R CT output 170/230 in 12/24 hrs, on -20 sxn. Occasional +1 air leak noted this am with deep breathing and cough
-follow daily CXR
-pain control
-encourage IS, OOB
-sq Heparin for DVT prophylaxis
Assessment / Plan
-
- Right middle lobe invasive adenocarcinoma- s/p Robotic assisted thoracic surgery (RATS) right middle lobectomy; Right upper lobe bleb resection; Radical lymphadenectomy; Extensive adhesiolysis/pneumolysis on 10/30/[address] Logan, pod #1
- Evidence of severe emphysema of lung tissue with hyperlipidemia and scarring around the hilar vessels
- Malignant neoplasm of the right middle lobe
- History of tobacco abuse, quit in 2021
- Hyperlipidemia
- Insomnia
- Lyme disease
- History of chest tubes x 2 secondary to iatrogenic pneumothorax following biopsy
- Acute postop blood loss anemia
- Acute postop atelectasis
- Acute postop hyponatremia
Discussed patient care with: Nursing and Care Team
Subjective
Procedure
- s/p Robotic assisted thoracic surgery (RATS) right middle lobectomy; Right upper lobe bleb resection; Radical lymphadenectomy; Extensive adhesiolysis/pneumolysis on 10/30/[address] Logan
-
Date of Service: October 31, 2023
Objective Data
-
PT 12.8 Sec (11.4-14.6) 10/18/23 12:48
INR 0.99 10/18/23 12:48
APTT 25.2 Sec (23.4-35.0) 10/18/23 12:48
Vital Signs
Vital Signs
Temp Pulse Resp BP Pulse Ox
98.3 F 83 16 109/80 96
10/31/23 01:01 10/31/23 01:01 10/31/23 01:01 10/31/23 00:00 10/31/23 01:01
CT Intake/Output/Weight
10/30/23 10/30/23 10/31/23
06:59 18:59 06:59
Intake Total 500 / 1460 960 / 1460
Output Total 60 / 610 550 / 610
Balance 440 / 850 410 / 850
SaO2: 96
Physical Exam
-
General: Awake and AOx3
Cardiovascular: Regular rate & rhythm, No Murmurs and No Rub
Respiratory: Decreased Breath Sounds (coarse on R. No wheeze)
Incision: Clean, Dry and Dressing Intact
Extremities: No Edema (2+ DPs b/l)
Data Reviewed
-
Lab Results: Results Reviewed
Medications: Active Meds Reviewed
Chest X-Ray: Report Reviewed and Image Reviewed
ECG: Report Reviewed and Image Reviewed
[2023-10-31] MEDS: TYLENOL 650 MG PO (07:59)
[2023-10-31] MEDS: SENOKOT-S 1 TABLET PO ×2 (07:59→19:59)
[2023-10-31] MEDS: NEURONTIN 100 MG PO ×3 (08:01→23:10)
[2023-10-31] MEDS: LIDOCAINE 4% PATCH 1 PATCH TOPICAL (08:02)
--- NOTE | 2023-10-31 08:03 | PTCARENOTE ---
Patient received from nightshift nurse. Patient is alert and oriented x4, pleasant. Patient c/o 8/10 R shoulder/upper back pain from CT - administered PRN Roxicodone as ordered. NSR/ST. HR 80s-100s. Audible heart tones. BP 121/79. Palpable pulses.
No edema. PIV x2 maintained. RA. Oxygen saturation 97%. Upon auscultation, lung sounds diminished at the R base and absent in the R middle lobe area. RP CT maintained to -20cm wall suction (upon handoff validation), but Dr. Logan disconnected the
suction and placed the patient on waterseal. RP CT has small serosanguineous drainage. RP CT dressing is clean, dry, intact. Crepitus palpated above and along the R side of the RP CT but not at the base of the R side of the neck - CT SURFACE WATER MANAGER aware.
Abdomen round. +BS, per patient passing gas. Voids in urinal. Ambulates in room and hallway independently. R lower lateral chest has small incision sites that are approximated with surgical adhesive and open to air. Will continue to monitor.
--- NOTE | 2023-10-31 11:42 | PTCARENOTE ---
Vital signs stable. NSR. HR 70s-90s. BP 126/76. RA. Oxygen saturation 98%. RP CT maintained to -20cm waterseal. When asked to cough or deep breathe, no air leak noted. Tidaling present. Small serosanguineous drainage. Patient given hospital pants
and he put his underwear on so he would feel more comfortable ambulating in hallway with , did multiple laps.
--- NOTE | 2023-10-31 12:08 | CM ---
Addendum entered by SHALINI Aguilera 10/31/23 15:28:
Met w/ patient and spouse while ambulating up/down morales. Pt. reports that he is feeling well.
Introduced CM, reviewed role.
Will cont. to follow.
Original Note:
CM following for DC planning needs.
Attempted to meet w/ patient at bedside. Pt. asleep. Will re-attempt later.
Anticipated DC plan is for home w/ CT Transitional Care RN.
CM to cont. to follow.
--- NOTE | 2023-10-31 13:12 | CON.PUL ---
Consultation
Consultation Request
Date/Time Consultation Requested: 10/31/23
Date/Time Consultation Performed: 10/31/23
Performing Provider: Delmy
Medical History
-
History of Present Illness:
Patient is a 48-year-old male with previous history of smoking, hyperlipidemia, known lung nodule status post bronchoscopic biopsy with inconclusive path presenting for elective surgical resection. His previous biopsy was complicated with
pneumothorax requiring chest tube. He had a PET/CT performed as an outpatient demonstrating some activity. Underwent right middle lobe resection plus lymph node dissection. Path is sent for confirmatory analysis. He is currently doing well with
chest tube in place, ambulating without shortness of breath.
Follows with Dr. Velazquez as an outpatient.
Past Medical History
Past Medical History: Other (see list below)
Social History
Tobacco: Former Smoker
Alcohol: None
Drug: None
Family History
Family History: Cancer
Allergies / Home Medications
Allergies
Allergy/AdvReac Type Severity Reaction Status Date / Time
silver Allergy SEVERE Verified 10/15/23 10:03
[From Tegaderm AG Mesh] BLISTERS
Home Medications
Medication Instructions Recorded Confirmed Last Taken Type
diphenhydramine HCl 25 mg capsule 25 mg PO HS PRN insomnia 09/20/23 10/30/23 10/29/23 10:00 History
(ZzzQuil)
melatonin 10 mg tablet 10 mg PO HS PRN insomnia 09/20/23 10/30/23 10/29/23 10:00 History
red yeast rice 600 mg tablet 1,200 mg PO DAILY Supplement 09/20/23 10/30/23 10/17/23 08:00 History
multivitamin 1 tab PO DAILY Supplement 10/15/23 10/30/23 10/17/23 08:00 History
Review of Systems
-
History Source: Patient
All other systems: Negative unless noted
Vitals / Labs / Diagnostic Testing
Vital Signs
Temp Pulse Resp BP Pulse Ox
98.1 F 81 18 126/76 98
10/31/23 11:42 10/31/23 11:42 10/31/23 11:42 10/31/23 11:42 10/31/23 11:42
Lab Data
10/31/23 03:15
10/31/23 03:15
Laboratory Results
10/30/23
17:09
pH Cancelled
pCO2 Cancelled
pO2 Cancelled
HCO3 Cancelled
O2 Delivery Level Cancelled
Diagnostic Testing:
Physical Exam
-
HEENT: Normocephalic, Anicteric and Moist Mucous Membranes
Cardiovascular: S1/S2 and Regular Rhythm
Respiratory: Non-Labored Respirations and Other (chest tube)
GI: Soft, Non Distended and Non Tender
Neurology: Awake, Alert, Oriented, AO x 3 and No Motor Deficits
Skin: Warm, Dry and Good Color
General: Comfortable and Other (NAD)
Assessment
-
Patient is a 48-year-old male with previous history of smoking, hyperlipidemia, known lung nodule status post bronchoscopic biopsy with inconclusive path presenting for elective surgical resection. His previous biopsy was complicated with
pneumothorax requiring chest tube. He had a PET/CT performed as an outpatient demonstrating some activity. Underwent right middle lobe resection plus lymph node dissection. Path is sent for confirmatory analysis. He is currently doing well with
chest tube in place, ambulating without shortness of breath.
RML nodule s/p Robotic assisted thoracic surgery (RATS) right middle lobectomy, Right upper lobe bleb resection, Radical lymphadenectomy 10/31/23
Iatrogenic PTX
Mild pleuritic pain
Mild hyponatremia
s/p robotic bronchoscopy 09/23/2023)-pre-santana LISA (+) for atypical cells/malignancy; final path inconclusive
EBUS negative for station 7 and 4R; insufficient lymph tissue for 11R
Condition present BLOCK [place]
chicken pox� �
lyme disease� �
abnormal fasting glucose� �
hyperlipidemia� �
former tobacco use, quit 05/2022�
total use 3/4 PPD x 25-30 years
RML lung nodule s/p lung biopsy� � 09/23/23� �
insomnia� �
HERNIA REPAIR 1990� �
dental surgery�
Plan
S/p RML resection with LN 10/30/23, POD #1
Doing well, stable on RA
Path still pending
Former path results reviewed
CXR showing R apical PTX
Chest tube in place
History of lung disease is not known, former smoker with risk for COPD
No PFTs for review
Likely can follow up in office for further testing
No cardiac history, no ECHO for review
Monitor on telemetry
Smoking history noted
Continue surveillance would be recommended
We will follow
Diagnostic Data
CXR 10/31/23- Findings suspicious for tiny right apical pneumothorax.
10/30/23- Subcutaneous emphysema along the soft tissues of the base of the neck bilaterally, right greater than left. No finding to confirm pneumothorax.
CT Chest 09/17/23- 1).There is stable minimally spiculated noncalcified pulmonary nodule in the right middle lobe measuring approximately 12 x 13 x 9 mm in AP, transverse and craniocaudal dimensions respectively. This nodule is not significantly
changed when compared with the 09/05/2023 examination and demonstrated only low level FDG avidity (1.4 SUV max) on 09/12/2023 PET scan suggesting probable benign etiology. Consider CT at 3 months or tissue sampling.�
2). A probably benign 3 mm noncalcified pulmonary nodule in the posterior lateral aspect of the right upper lobe unchanged when compared with image 91 series 4 of the 09/12/2023 PET scan.
All relevant imaging reviewed.
--- NOTE | 2023-10-31 15:45 | PTCARENOTE ---
Patient c/o abdominal distension and increasing pain. He is anxious that something will go wrong so he reports everything. RN assessed the patient, more crepitus was palpated towards the lateral side of his chest. Administered PRN pain medication as
ordered. RN notified CT SHIFT SUPERVISOR FILM PROCESSING, who assessed the patient at bedside and ordered a stat CXR, which was similar to the CXR in AM. Patient was nervous that he was internally bleeding, but CT SHIFT SUPERVISOR FILM PROCESSING helped ease his worries.
Vital signs stable. NSR. HR 80s, but with activity HR 100s. BP 130/77. RA. Oxygen saturation 96%. RP CT maintained to -20cm waterseal. Minimal red drainage from RP CT. Ambulating in hallway with , where he does multiple laps. Pain managed. Will
continue to monitor.
[2023-10-31] MEDS: FLEXERIL 10 MG PO (17:17)
--- NOTE | 2023-10-31 19:49 | PTCARENOTE ---
VSS. Pt ambulated on the unit with . Tachycardic HR 110-120s but tolerated. NSR after rest. Assessment per nursing flowsheet. Pain medication to be administered PRN. Pt educated on IS. RP CT to waterseal - serosanguinous drainage. Crepitus noted
above and lateral to insertion site.
--- NOTE | 2023-10-31 23:09 | PTCARENOTE ---
NSR. VSS. 2L NC. Pt sleeping. Care clustered per patient's request. Assessment unchanged. CT continues with serosanguinous drainage.
[2023-11-01 04:12] VITALS: BP 119/72
[2023-11-01] MEDS: ROXICODONE 10 MG PO ×2 (04:15→10:19)
--- NOTE | 2023-11-01 04:22 | PTCARENOTE ---
NSR. VSS. Resting. Care clustered. Assessment unchanged. Labs obtained and sent. Oxycodone administered for pain. CT continues with serosang drainage and tidaling.
[2023-11-01 04:51] LABS: Hemoglobin 11.7 g/dL (13.0-18.0); Mean Corp Hgb Conc. 35.5 g/dL (33.0-37.0); Mean Corpuscular Hgb 31.6 pg (27.0-31.0); Mean Corpuscular Volume 89.2 fL (80.0-94.0); Mean Platelet Volume 11.1 fL (7.4-10.4); Platelet Count 139 10^3/uL (130-400); Red Cell Dist. Width 11.8 % (11.5-14.5)
[2023-11-01 05:14] LABS: Blood Urea Nitrogen 21 mg/dl (9-20); Carbon Dioxide 25 mmol/L (22-30); Chloride 107 mmol/L (98-107); Estimated Creatinine Clearance > 125 ml/min; Glucose 99 mg/dl (70-99); Potassium 3.7 mmol/L (3.5-5.1); Sodium 138 mmol/L (135-145); eGFR > 60.00
[2023-11-01 05:42] VITALS: BMI 25.6
--- NOTE | 2023-11-01 06:11 | W.PN.CT ---
Today's Communication / Plan
-
-pod #2
-no issues overnight, ambulates in hallways
-R CT on water seal overnight. No air leak noted with breathing, talking or cough
-CXR appears stable with possible tiny R apical ptx- follow Radiology report
-encourage IS, OOB
-follow pathology (pending)
Assessment / Plan
-
- Right middle lobe invasive adenocarcinoma- s/p Robotic assisted thoracic surgery (RATS) right middle lobectomy; Right upper lobe bleb resection; Radical lymphadenectomy; Extensive adhesiolysis/pneumolysis on 10/30/[address] Logan, pod #2
- Evidence of severe emphysema of lung tissue with hyperlipidemia and scarring around the hilar vessels
- Malignant neoplasm of the right middle lobe
- History of tobacco abuse, quit in 2021
- Hyperlipidemia
- Insomnia
- Lyme disease
- History of chest tubes x 2 secondary to iatrogenic pneumothorax following biopsy
- Acute postop blood loss anemia
- Acute postop atelectasis
- Acute postop hyponatremia
- Acute postop subcutaneous emphysema
Discussed patient care with: Nursing and Care Team
Subjective
Procedure
- s/p Robotic assisted thoracic surgery (RATS) right middle lobectomy; Right upper lobe bleb resection; Radical lymphadenectomy; Extensive adhesiolysis/pneumolysis on 10/30/[address] Logan
-
Date of Service: November 01, 2023
Objective Data
-
PT 12.8 Sec (11.4-14.6) 10/18/23 12:48
INR 0.99 10/18/23 12:48
APTT 25.2 Sec (23.4-35.0) 10/18/23 12:48
Vital Signs
Vital Signs
Temp Pulse Resp BP Pulse Ox
98.4 F 108 18 112/89 96
10/31/23 19:46 10/31/23 20:00 10/31/23 19:46 10/31/23 19:46 10/31/23 21:50
CT Intake/Output/Weight
10/31/23 10/31/23 11/01/23
06:59 18:59 06:59
Intake Total 960 / 1460 960 / 960
Output Total 1010 / 1070 20 / 80 60 / 80
Balance -50 / 390 940 / 880 -60 / 880
SaO2: 96
Physical Exam
-
General: Awake and AOx3
Cardiovascular: Regular rate & rhythm, No Murmurs and No Rub
Respiratory: Decreased Breath Sounds (coarse on R. No wheeze)
Incision: Clean, Dry and Dressing Intact. Subq emphysema palpable at R chest wall near incision
Extremities: No Edema (2+ DPs b/l)
Data Reviewed
-
Lab Results: Results Reviewed
Medications: Active Meds Reviewed
Chest X-Ray: Report Reviewed and Image Reviewed
ECG: Report Reviewed and Image Reviewed
[2023-11-01 08:30] VITALS: BP 119/80
[2023-11-01] MEDS: NEURONTIN 100 MG PO (08:34)
[2023-11-01] MEDS: SENOKOT-S 1 TABLET PO (08:34)
[2023-11-01] MEDS: HEPARIN 5000 UNITS SC (08:35)
[2023-11-01] MEDS: LIDOCAINE 4% PATCH 1 PATCH TOPICAL (08:35)
--- NOTE | 2023-11-01 09:04 | PTCARENOTE ---
assumed care of pt from previous shift RN, sinus rhythm on tele, VSS, pt denies CP, +peripheral pulses, lungs diminished. Coughing and deep breathing encouraged. +bs, tolerating PO intake, voids spontaneously. PIV x2 flush easily. Pt ambulating in
hallway w , tolerating well. CT clamped w crepitus noted. plan of care reviewed w the pt and questions encouraged.
--- NOTE | 2023-11-01 11:36 | W.PN.PUL3 ---
Today's Communication / Plan
-
Path still pending
Chest tube discontinued, agree with OP repeat CXR
Encouraged ambulation/IS
Outpatient pulmonary FU arranged
Discharge planning per team
Assessment
-
Patient is a 48-year-old male with previous history of smoking, hyperlipidemia, known lung nodule status post bronchoscopic biopsy with inconclusive path presenting for elective surgical resection. His previous biopsy was complicated with
pneumothorax requiring chest tube. He had a PET/CT performed as an outpatient demonstrating some activity. Underwent right middle lobe resection plus lymph node dissection. Path is sent for confirmatory analysis. He is currently doing well with
chest tube in place, ambulating without shortness of breath.
RML nodule s/p Robotic assisted thoracic surgery (RATS) right middle lobectomy, Right upper lobe bleb resection, Radical lymphadenectomy 10/31/23
Iatrogenic PTX
Mild pleuritic pain
Mild hyponatremia
s/p robotic bronchoscopy 09/23/2023)-pre-santana LISA (+) for atypical cells/malignancy; final path inconclusive
EBUS negative for station 7 and 4R; insufficient lymph tissue for 11R
Condition present WHISTLE PUNK
chicken pox� �
lyme disease� �
abnormal fasting glucose� �
hyperlipidemia� �
former tobacco use, quit 05/2022�
total use 3/4 PPD x 25-30 years
RML lung nodule s/p lung biopsy� � 09/23/23� �
insomnia� �
HERNIA REPAIR 1990� �
dental surgery�
Plan
S/p RML resection with LN 10/30/23, POD #2
Doing well, stable on RA
Path still pending
Former path results reviewed
CXR showing R apical PTX
Chest tube discontinued
Plan for repeat CXR testing in 1 week post discharge
History of lung disease is not known, former smoker with risk for COPD
No PFTs for review
Likely can follow up in office for further testing
No cardiac history, no ECHO for review
Monitor on telemetry
Smoking history noted
Continue surveillance would be recommended
Discharge planning per team
Diagnostic Data
CXR 10/31/23- Findings suspicious for tiny right apical pneumothorax.
10/30/23- Subcutaneous emphysema along the soft tissues of the base of the neck bilaterally, right greater than left. No finding to confirm pneumothorax.
CT Chest 09/17/23- 1).There is stable minimally spiculated noncalcified pulmonary nodule in the right middle lobe measuring approximately 12 x 13 x 9 mm in AP, transverse and craniocaudal dimensions respectively. This nodule is not significantly
changed when compared with the 09/05/2023 examination and demonstrated only low level FDG avidity (1.4 SUV max) on 09/12/2023 PET scan suggesting probable benign etiology. Consider CT at 3 months or tissue sampling.�
2). A probably benign 3 mm noncalcified pulmonary nodule in the posterior lateral aspect of the right upper lobe unchanged when compared with image 91 series 4 of the 09/12/2023 PET scan.
All relevant imaging reviewed.
Subjective Data
-
Date of Service:
Date of Service: November 01, 2023
Chief Complaint: Pulmonary Follow Up
Subjective:
doing well, stable on RA
chest tube discontinued
no new complaints
Objective Data
Data Reviewed
Vital Signs / I&O / Oxygen:
Vital Signs
Temp Pulse Resp BP Pulse Ox
97.7 F 80 18 119/80 100
11/01/23 08:30 11/01/23 09:00 11/01/23 08:30 11/01/23 08:30 11/01/23 10:38
Intake and Output
10/31/23 11/01/23 11/02/23
06:59 06:59 06:59
Intake Total 1460 / 1460 1060 / 1060 100 / 100
Output Total 1070 / 1070 100 / 100
Balance 390 / 390 960 / 960 100 / 100
SaO2 100
Nasal Cannula flow liters per 2
minute
Physical Exam
General: Comfortable, Good Appetite and Other (NAD)
HEENT: Normocephalic, Anicteric and Moist Mucous Membranes
Cardiovascular: S1-S2 and Regular Rhythm
Respiratory: Clear and Non-Labored Respirations
GI: Soft, Non Distended and Non Tender
Neurology: Awake, Alert, Oriented, AO x 3 and No Motor Deficits
Skin: Warm, Dry and Good Color
Labs/Micro/Reports
Lab Data
11/01/23 04:11
11/01/23 04:11
--- NOTE | 2023-11-01 11:45 | W.DCSUMMARY ---
Discharge Summary
Discharge Data
Date of Admission: 10/30/23
Date of Discharge: 11/01/23
-
Pending Results: Yes
Additional Pending Results:
surgical pathology final report
Hospital Course
Primary care physician: Arlet Wheatley
Outpatient shipping hand: Reji Velazquez
Inpatient consultants: Bethany Logan (pulmonary)
Procedures:
1. Robotic assisted thoracic surgery right middle lobe lobectomy, right upper lobe bleb resection, radical lymphadenectomy (extensive adhesions)
Primary Diagnosis:
1. Right middle lobe invasive adenocarcinoma
Secondary Diagnoses:
1. tobacco abuse (quit 2021)
2. History of chest tube x 2 s/p iatrogenic PTX following lung biopsy
3. Hyperlipidemia
4. History of Lyme disease
HPI: Peter Is a 48-year-old male electively admitted 10/30/2023 for robotic assisted right middle lobe lobectomy
Hospital course: Patient underwent robotic assisted thoracic surgery right lower lobe lobectomy, right upper lobe bleb resection, radical lymphadenectomy by Dr. Paresh Logan. Patient was extubated in the operating room and recovered in the PACU.
Postoperative day #1 mild crepitus at the chest tube insertion site was noted. Tiny intermittent leak with cough was noted and chest tube was placed to waterseal. Follow-up x-ray was stable and patient remained on waterseal throughout the day. On
postoperative day #2 chest tube was clamped and follow-up x-ray reported stable tiny R apical PTX. Right pleural chest tube was removed and follow-up x-ray reported unchanged PTX. Patient is stable for discharge to home with follow-up CXR in 1 week.
Home medication changes:
Discharge Plan
-
Patient Disposition: Home (Routine Discharge)
Discharge Diagnosis/Procedures: lung cancer/right middle lobectomy
Condition: Good
Diet: No restrictions
Activity: No strenuous activity
Driving Restrictions: No driving for 1 week
Bathing Restrictions: After dressing removed
Others Tests: CXR in 1 week
Referrals:
CT Transitional Care Nurse [Outside] (The Cardiothoracic Transitional Care Nurse will call you to set up a visit in 1-2 days.)
Arlet Wheatley MD [Family Provider] -
Paresh Logan MD [Active] - 11/20/23 1:45 pm
Additional Discharge Medication Instructions: do NOT drive/operate heavy machinery while taking muscle relaxants or opioids
Prescriptions:
New
acetaminophen 325 mg Tablet
650 mg PO Q4HPRN PRN (Reason: temp >102 F and/or mild pain) Qty: 0 0RF
cyclobenzaprine 10 mg Tablet
10 mg PO TIDPRN PRN (Reason: muscle spasm) Qty: 60 0RF
gabapentin 100 mg Capsule
100 mg PO TID Qty: 90 0RF
oxycodone 5 mg Tablet
5 mg PO Q6HPRN PRN (Reason: severe pain) Qty: 30 0RF
Continued
diphenhydramine HCl [ZzzQuil] 25 mg Capsule
25 mg PO HS PRN (Reason: insomnia)
red yeast rice 600 mg Tablet
1,200 mg PO DAILY
melatonin 10 mg Tablet
10 mg PO HS PRN (Reason: insomnia)
multivitamin Tablet
1 tab PO DAILY
Discharge Orders:
Discharge Patient (As Directed); Ordered 11/01/23
Ordered By: Ruthie Mensah
Care Plan Goals
Care Plan Goals:
Problem: Readiness for enhanced knowledge related to diagnosis and treatment plan
Goal: Understand your diagnosis and treatment plan needs, including medications if applicable.
Instructions: Know your diagnosis, underlying causes and treatment plan options, including medications if applicable. Consult with your health care team to learn about your diagnosis and treatment plan, including medications if applicable.
--- NOTE | 2023-11-01 12:16 | PTCARENOTE ---
Right pleural CT removed by CT GAS STATION OPERATOR, pt tolerated well.
[2023-11-01 13:01] VITALS: BP 108/85
--- NOTE | 2023-11-01 13:56 | CM ---
Patient for DC today, order noted.
Plan is for home w/ CT Transitional Care RN.
No other identified needs.
--- NOTE | 2023-11-01 14:24 | PTCARENOTE ---
IV line and tele monitor d/c'ed, discharge instructions, medication list and follow up appointments reviewed w the pt and his , emotional support provided and questions encouraged.
== END 2023-11-01 14:45 | disposition home or self-care (01) | DRG 164 ==
LOC: CVICU 07:30
PROVIDERS: Nurse Practitioner; Physician Assistant Medical; ADMITTING PHYSICIAN Thoracic Surgery (Cardiothoracic Vascular Surgery); CONSULT PHYSICIAN Internal Medicine; FAMILY PHYSICIAN Emergency Medicine
PROC: 0BTD4ZZ Resection of Right Middle Lung Lobe, Percutaneous Endoscopic Approach (ICD-10-PCS; 2023-10-30)
PROC: 0BND4ZZ Release Right Middle Lung Lobe, Percutaneous Endoscopic Approach (ICD-10-PCS; 2023-10-30)
PROC: 0BNC4ZZ Release Right Upper Lung Lobe, Percutaneous Endoscopic Approach (ICD-10-PCS; 2023-10-30)
PROC: 0BBC4ZX Excision of Right Upper Lung Lobe, Percutaneous Endoscopic Approach, Diagnostic (ICD-10-PCS; 2023-10-30)
PROC: 07T74ZZ Resection of Thorax Lymphatic, Percutaneous Endoscopic Approach (ICD-10-PCS; 2023-10-30)
PROC: 3E0T3BZ Introduction of Anesthetic Agent into Peripheral Nerves and Plexi, Percutaneous Approach (ICD-10-PCS; 2023-10-30)
PROC: 0BNF4ZZ Release Right Lower Lung Lobe, Percutaneous Endoscopic Approach (ICD-10-PCS; 2023-10-30)
PROC: 8E0W4CZ Robotic Assisted Procedure of Trunk Region, Percutaneous Endoscopic Approach (ICD-10-PCS; 2023-10-30)
PROC: 3E0T33Z Introduction of Anti-inflammatory into Peripheral Nerves and Plexi, Percutaneous Approach (ICD-10-PCS; 2023-10-30)
PROC: 0WP9X0Z Removal of Drainage Device from Right Pleural Cavity, External Approach (ICD-10-PCS; 2023-11-01)
DX: R91.8 Other nonspecific abnormal finding of lung field (principal); D62 Acute posthemorrhagic anemia; E87.1 Hypo-osmolality and hyponatremia; J98.11 Atelectasis; R07.81 Pleurodynia; T81.82XA Emphysema (subcutaneous) resulting from a procedure, initial encounter; Y83.8 Other surgical procedures as the cause of abnormal reaction of the patient, or of later complication, without mention of misadventure at the time of the procedure; E78.5 Hyperlipidemia, unspecified; J98.4 Other disorders of lung; G47.00 Insomnia, unspecified; Z87.891 Personal history of nicotine dependence; Z91.048 Other nonmedicinal substance allergy status; Z86.19 Personal history of other infectious and parasitic diseases
CPT/HCPCS: 88305; 88307; 88309; 88312; 32505; 36415; 71045; 80048; 80053; 81003; 82248; 83036; 85025; 85027; 85610; 85730; 86850; 86900; 86901; 87070; 88313; 93005; C2615

== ENCOUNTER → 2023-11-08 13:48 | Outpatient (REF) | payer BC, SELFPAY | LOC: RAD 13:48 | PROVIDERS: ATTENDING PHYSICIAN Thoracic Surgery (Cardiothoracic Vascular Surgery); FAMILY PHYSICIAN Emergency Medicine; OTHER PHYSICIAN Internal Medicine Critical Care Medicine | DX: J93.9 Pneumothorax, unspecified (principal) | CPT/HCPCS: 71046 ==

== ENCOUNTER → 2024-03-27 13:44 | Outpatient (REF) | payer BC, SELFPAY | LOC: HWRAD 13:44 | PROVIDERS: ATTENDING PHYSICIAN Internal Medicine Critical Care Medicine; FAMILY PHYSICIAN Emergency Medicine | DX: R91.1 Solitary pulmonary nodule (principal) | CPT/HCPCS: 71250 ==

== ENCOUNTER → 2024-09-30 10:40 | Outpatient (REF) | payer BC, SELFPAY | LOC: HWRAD 10:40 | PROVIDERS: ATTENDING PHYSICIAN Internal Medicine Critical Care Medicine; FAMILY PHYSICIAN Emergency Medicine | DX: B49 Unspecified mycosis (principal); R91.8 Other nonspecific abnormal finding of lung field; J84.10 Pulmonary fibrosis, unspecified | CPT/HCPCS: 71250 ==

== ENCOUNTER → 2025-02-24 15:52 | Outpatient (REF) | payer BC, SELFPAY | LOC: RAD 15:52 | PROVIDERS: ATTENDING PHYSICIAN Emergency Medicine | DX: R06.02 Shortness of breath (principal); Z90.2 Acquired absence of lung [part of] | CPT/HCPCS: 71046 ==